=== PATIENT | male | born 1950 | race Caucasian/White ===

== ENCOUNTER → 2022-03-29 11:15 | Outpatient (BNVA) | payer MEDICARE, OTHER, SELFPAY | PROVIDERS: Visit Provider Family Medicine | DX: E11.9 Type 2 diabetes mellitus without complications (principal); G20 Parkinson's disease; I10 Essential (primary) hypertension; Z12.5 Encounter for screening for malignant neoplasm of prostate; Z76.89 Persons encountering health services in other specified circumstances | CPT/HCPCS: 80053; 80061; 83036; 84153; 85025 ==

== ENCOUNTER → 2022-09-28 11:00 | Outpatient (BNVA) | payer MEDICARE, OTHER, SELFPAY | PROVIDERS: PCP Family Medicine; Referring Provider Family Medicine; Visit Provider Specialist | DX: G20 Parkinson's disease (principal); R13.10 Dysphagia, unspecified | CPT/HCPCS: 99205 ==

== ENCOUNTER 2022-10-01 09:17 | Outpatient (RCR) | payer MEDICARE, OTHER, SELFPAY | END 2022-10-12 23:59 | disposition home or self-care (01) | LOC: SST 09:17 | PROVIDERS: PCP Family Medicine; Visit Provider Specialist | DX: R13.10 Dysphagia, unspecified (principal) | CPT/HCPCS: 92523; 92610 ==

== ENCOUNTER 2022-10-13 06:00 | Outpatient (RCR) | payer MEDICARE, OTHER, SELFPAY | END 2022-11-09 23:59 | disposition home or self-care (01) | LOC: SST 06:00 | PROVIDERS: PCP Family Medicine; Visit Provider Specialist | DX: R13.10 Dysphagia, unspecified (principal) | CPT/HCPCS: 92526 ==

== ENCOUNTER 2022-11-03 09:16 | Outpatient (CLI) | payer MEDICARE, OTHER, SELFPAY ==
--- NOTE | 2022-11-03 10:30 | FL_ITS ---
WS: [id number] The exam was performed in conjunction with the speech therapy service. Exam: FL barium swallow modifd [id number] Date/Time of Exam: 11/03/2022 10:15 AM Reason For Exam: G20 - Parkinson's disease Fluoroscopy time: 3min [id number] minutes # of spot films: 0 Swallowing function at the level of oropharynx was normal. The patient experienced penetration into t he laryngeal inlet and mild aspiration with ingestion of thin liquid barium solution. There was also a retention of the solid and pudding consistency barium foodstuffs in the vallecula. Ingestion of a b arium tablet demonstrated the retention of the tablet in the vallecula which eventually was cleared w ith the ingestion of thin liquid barium. FL/FL barium swallow modifd [id number] IMPRESSION: 1. Penetration and mild aspiration noted when the patient ingested thin liquid barium. 2. Significant retention of the solid and pudding consistency barium foodstuffs in the vallecula as well as the barium tablet. This cleared with additional in gestion of the thin liquid barium. A separate report of recommendations and findings will follow from the speech t herapy service.
== END 2022-11-03 09:17 | disposition home or self-care (01) ==
PROVIDERS: PCP Family Medicine; Visit Provider Specialist
DX: G20 Parkinson's disease (principal)
CPT/HCPCS: 74230; 92611

== ENCOUNTER 2022-11-10 06:00 | Outpatient (RCR) | payer MEDICARE, OTHER, SELFPAY | END 2022-12-10 23:59 | disposition home or self-care (01) | LOC: SST 06:00 | PROVIDERS: PCP Family Medicine; Visit Provider Specialist | DX: F80.89 Other developmental disorders of speech and language (principal) | CPT/HCPCS: 92526 ==

== ENCOUNTER → 2022-11-23 08:14 | Outpatient (BNVA) | payer MEDICARE, OTHER, SELFPAY | PROVIDERS: PCP Family Medicine; Visit Provider Family Medicine | DX: E11.9 Type 2 diabetes mellitus without complications (principal); I10 Essential (primary) hypertension; G20 Parkinson's disease; R61 Generalized hyperhidrosis | CPT/HCPCS: 80053; 80061; 83036; 84443; 85025 ==

== ENCOUNTER → 2023-01-31 10:45 | Outpatient (BNVA) | payer MEDICARE, OTHER, SELFPAY | PROVIDERS: PCP Family Medicine; Visit Provider Specialist | DX: G20 Parkinson's disease (principal); F06.70 Mild neurocognitive disorder due to known physiological condition without behavioral disturbance | CPT/HCPCS: 99214 ==

== ENCOUNTER → 2023-02-17 10:44 | Outpatient (BNVA) | payer MEDICARE, OTHER, SELFPAY | PROVIDERS: PCP Family Medicine; Visit Provider Family Medicine | DX: R61 Generalized hyperhidrosis (principal); E11.9 Type 2 diabetes mellitus without complications; I10 Essential (primary) hypertension; E03.9 Hypothyroidism, unspecified; G20 Parkinson's disease | CPT/HCPCS: 80053; 83036; 84443; 85025 ==

== ENCOUNTER → 2023-03-03 10:06 | Outpatient (BNVA) | payer MEDICARE, OTHER, SELFPAY | PROVIDERS: PCP Family Medicine; Referring Provider Family Medicine; Visit Provider Student in an Organized Health Care Education/Training Program | DX: M79.644 Pain in right finger(s) (principal); M65.311 Trigger thumb, right thumb | CPT/HCPCS: 73130; 99204 ==

== ENCOUNTER 2023-03-16 05:30 | Day surgery (SDC) | payer MEDICARE, OTHER, SELFPAY ==
[2023-03-14 08:34] VITALS: BMI 20.7
[2023-03-16] VITALS (7 sets, daily range): BP systolic 124–151; BP diastolic 63–89; PULSE 51–93; RESP 16–17; TEMP 36.1–36.6; O2SAT 95–98
[2023-03-16 06:12] LABS: Glucose Point of Care 148 mg/dL (70-110)
[2023-03-16] MEDS: acetaminophen 1,000 MG/100 ML PIGGYBACK 400 MG IV (06:13)
[2023-03-16] MEDS: sodium chloride 0.9% 1,000 ML 30 ML IV (06:14)
[2023-03-16] MEDS: ketorolac 30 mg/mL INJ IVP (06:16)
--- NOTE | 2023-03-16 06:56 | W.PM.OPSUD ---
Surgery/Procedure H&P Update DATE OF PROCEDURE: March 16, 2023 DATE H&P PERFORMED: 03/03/23 CHANGES TO PREVIOUS DOCUMENTATION: None. No change in patient's HPI from office visit on 03/03/2023. Understands risk benefits complication alternatives with surgery elects to proceed with right thumb trigger release. PREOP DIAGNOSIS: Right thumb trigger PRIMARY INDICATION FOR PROCEDURE: Right thumb trigger PLANNED PROCEDURE: Operation Date: 03/16/23 07:00 Proposed Procedures p right trigger thumb release/ [id number],M65.311(Right) - Russ Ibarra DO
[2023-03-16] MEDS: ceFAZolin 2,000 MG in sodium chloride 0.9% (plus) 50 ML 100 MG IV (07:02)
--- NOTE | 2023-03-16 07:43 | PM.OP2 ---
Brief Operative Note Date of procedure: 03/16/23 Pre-op diagnosis: Right thumb trigger Post-op diagnosis: same Procedure Done: Right thumb trigger release Surgeon: Russ Ibrara Estimated blood loss (mL): 1 Complications: None Post-op Plan: Patient taken to PACU in stable condition recovering well. Pain controlled. Will receive appropriate discharge instructions as well as pain medication postoperatively. Patient follow-up in the orthopedic office in 2 weeks. All questions answered. Condition: stable Disposition: same day Coding Level of Care Code Acute Code for Alhaji Rodríguez
--- NOTE | 2023-03-16 07:45 | PM.PACU ---
PACU note Narrative: Patient taken back in stable condition recovering well. Pain controlled. Dressing on in place and clean dry and intact. Fingertip warm well-perfused brisk capillary refill less than 2 seconds able to subtly wiggle finger sensation to the right thumb decreased secondary to local anesthesia. Exam: awake Disposition: discharged
--- NOTE | 2023-03-16 07:46 | PM.OP ---
Operative Report Date of procedure: March 16, 2023 Pre-op diagnosis: Preop Diagnosis Right thumb trigger Procedure: Post-op diagnosis: Right thumb trigger Procedure done: Right thumb trigger release Surgeon: Russ Ibarra DO Estimated blood loss: 1 mL Tourniquet time: 6 minutes Anesthesia: General IV fluids: See anesthesia record Complications: None Findings: See operative report narrative Condition: stable Disposition: same day Brief History: Patient presents to the outpatient setting with findings consistent with a right thumb trigger. Patient has been worked up in the outpatient setting and is failed conservative treatment approach.? Patient has a right thumb trigger that patient has tried treating conservatively with recurrence of triggering and pain.? We talked about treatment options and ultimately patient would like to proceed with a right thumb trigger release. At this point time I feel this is most appropriate as this is next best step in treatment option.? We talked about the risk benefits complications and alternatives with surgical nonsurgical treatment options.? Understanding risk of surgery patient agrees to proceed with a right thumb trigger release. All questions answered. Procedure: Patient was seen evaluated in the preoperative holding area.? Consent was reviewed and signed with patient.? Correct extremity was then marked.? Patient was then seen and evaluated by the anesthesia department once cleared for surgery patient was then taken back to the operative suite patient was placed in supine position and all bony prominences well-padded the patient was properly secured to the bed.? Armboard was applied to the right upper extremity and the right upper extremity was then placed with a nonsterile tourniquet to the right upper arm.? This point time the right upper extremity was then prepped and draped in standard orthopedic fashion.? A final timeout was performed.? Patient received appropriate preoperative antibiotics. Esmarch tourniquet was used exsanguinate the right upper extremity and tourniquet was insufflated to 250 mmHg.? I identified patient's MP flexion crease marked appropriate incision transversely across the flexion crease within Ramses's lines sharp scalpel incision was made only through skin.? Once this was done I switched to Littler dissection scissors this I then subsequently spread longitudinally in the planes of the digital nerves.? Once these were identified these were protected by my psychologist research assistant with Kasdan retractors.? Next I identified directly over the A1 massimo of the right thumb.? This was significantly thickened and identified to be the area of patient's thumb triggering.? I used sharp scalpel to incise the A1 massimo and then utilized my psychologist research assistant to retract the ability and under loupe magnification released the entirety of the A1 massimo both proximally and distally up to the oblique massimo.? This point time the tendon was then inspected and found to be healthy there was some inflammation around the tendon itself but no evidence of tearing and no need for any debridement.? The Ragnell was used to pull the tendon out of the incision and there was no mechanical triggering I then took the patient's thumb through range of motion no recurrent triggering was noted.? ?I then let the tourniquet down identified and maintained exact hemostasis with bipolar electrocautery irrigated the wound bed and then closed the incision with interrupted nylon suture. Incision sites were then dressed with Xeroform 4 x 4's Kerlix Emily wrap and an Luis Eduardo wrap.? Patient was then awakened from anesthesia and taken to PACU in stable condition. Disposition: Patient taken to PACU in stable condition recovering well.? Dressing on in place clean dry and intact.? Patient was receive appropriate discharge instruction as well as pain medication postoperatively.? Patient may be allowed weightbearing as tolerated to the right hand and encourage range of motion once dressing come down after 72 hours.? Patient to follow-up with me in the office in 2 weeks.? Patient understands and agrees with current plan.? All questions answered.
--- NOTE | 2023-03-16 09:14 | ANES.PREANE2 ---
Pre-Anesthetic Assessment Height/Weight: Height 1.75 m Weight 63.503 kg Temp Pulse Resp BP Pulse Ox O2 Del Method 98 F 51 L 17 128/66 98 Room Air 03/16/23 07:58 03/16/23 08:13 03/16/23 08:13 03/16/23 08:13 03/16/23 08:13 03/16/23 08:13 Preop Diagnosis: Right thumb trigger Operation Date: 03/16/23 07:00 Proposed Procedures p right trigger thumb release/ [id number],M65.311(Right) - Russ Wagoner, Familial anesthetic complications: none Was Beta Francis taken within 24 hours: N/A Was Clonidine taken within 24 hours: N/A Last intake: Intake Last Liquid Date 03/15/23 Last Liquid Time 19:00 Last Solid Date 03/15/23 Last Solid Time 19:00 Social No alcohol and No tobacco Exam alert, oriented x 3, clear to auscultation bilaterally and regular rate & rhythm Airway Submandibular: within normal limits Cervical ROM: within normal limits Mallampati: Class II Dentition: full Pulmonary Chronic Obstructive Pulmonary Disease CV/HEM Hypertension GI Gastroesophageal Reflux Disease Metabolic Diabetes Mellitus and Thyroid Disease Neuropsych Parkinson's Anesthetic Plan ASA status: 3 Anesthesia: MAC Medications/Allergies Home Medications Medication Instructions Recorded Confirmed Last Taken Type Saccharomyces boulardii 250 mg 250 mg PO DAILY 03/29/22 03/14/23 Unknown History capsule metformin 500 mg tablet 500 mg PO DAILY 03/29/22 03/16/23 03/16/23 History dapagliflozin 10 mg tablet 10 mg PO DAILY #90 tabs 05/27/22 03/16/23 03/15/23 Rx diabetic supplies, miscellan. #100 ea 09/11/22 03/03/23 Unknown Rx omeprazole 20 mg capsule,delayed 20 mg PO DAILY #90 caps 10/07/22 03/16/23 03/15/23 Rx release aspirin 81 mg tablet,delayed 81 mg PO DAILY 11/18/22 03/14/23 03/13/23 History release (Adult Aspirin Regimen) docusate sodium 100 mg capsule 100 mg PO DAILY 11/18/22 03/16/23 03/15/23 History (Colace) tiotropium bromide 18 mcg capsule 1 cap inhalation DAILY 11/18/22 03/14/23 Unknown History with inhalation device (Spiriva with HandiHaler) levothyroxine 25 mcg capsule 25 mcg PO DAILY #30 caps 11/30/22 03/16/23 03/16/23 Rx albuterol sulfate 90 mcg/actuation See Rx Instructions .Route 01/10/23 03/14/23 Unknown Rx aerosol inhaler .COMPLEX #60.3 grams lisinopril 20 mg tablet See Rx Instructions .Route 01/10/23 03/16/23 03/15/23 Rx .COMPLEX #90 tabs carbidopa 25 mg-levodopa 100 mg 1 tab PO BID #180 tabs 01/31/23 03/16/23 03/15/23 Rx tablet carbidopa ER 50 mg-levodopa 200 mg 2 tab PO BID 90 days #360 tabs 01/31/23 03/16/23 03/16/23 Rx tablet,extended release ropinirole 3 mg tablet 3 mg PO .2 tabs BID #360 tabs 01/31/23 03/16/23 03/15/23 Rx amlodipine 10 mg tablet See Rx Instructions .Route 03/10/23 03/16/23 03/15/23 Rx .COMPLEX #90 tabs diclofenac sodium 1 % topical gel See Rx Instructions .Route 03/10/23 03/14/23 Unknown Rx .COMPLEX #100 grams simvastatin 20 mg tablet See Rx Instructions .Route 03/10/23 03/16/23 03/15/23 Rx .COMPLEX #90 tabs hydrocodone 5 mg-acetaminophen 325 1 tab PO Q8H PRN pain postop 5 03/16/23 Unknown Rx mg tablet days #15 tabs ondansetron 4 mg disintegrating 4 mg PO DAILY 5 days #5 tabs 03/16/23 Unknown Rx tablet Allergies Allergy/AdvReac Type Severity Reaction Status Date / Time No Known Allergies Allergy Verified 03/16/23 07:47 PFSH Anesthesia Medical History Hypothyroid Social History Smoking and tobacco status: never smoked Alcohol intake: never Substance/Drug Use: never Data Anesthesia Cardiac Studies: No Data to Display
--- NOTE | 2023-03-16 16:35 | ANE.PACU2 ---
Inpatient post-anesthesia follow up: Airway intact: Yes Vital signs: Temperature 98 F Pulse Rate 51 Respiratory Rate 17 Blood Pressure 128/66 Pulse Oximetry 98 Oxygen Delivery Me thod Room Air Oxygen Flow Rate Fraction of Inspir ed Oxygen Hydration adequate: Yes Nausea and vomiting: No Pain level: 2 Mental status: Baseline
== END 2023-03-16 08:35 | disposition home or self-care (01) ==
PROVIDERS: PCP Family Medicine; Visit Provider Student in an Organized Health Care Education/Training Program
PROC: (CPT 26055; principal; 2023-03-16 07:00)
DX: M65.311 Trigger thumb, right thumb (principal); J44.9 Chronic obstructive pulmonary disease, unspecified; I10 Essential (primary) hypertension; K21.9 Gastro-esophageal reflux disease without esophagitis; E11.9 Type 2 diabetes mellitus without complications; E03.9 Hypothyroidism, unspecified; Z79.84 Long term (current) use of oral hypoglycemic drugs; Z79.82 Long term (current) use of aspirin; Z79.891 Long term (current) use of opiate analgesic
CPT/HCPCS: 26055; 36416; 82962; J0131; J0690; J1100; J1885; J2371; J2704; J2795; J3010; J7030

== ENCOUNTER → 2023-03-31 10:01 | Outpatient (BNVA) | payer MEDICARE, OTHER, SELFPAY | PROVIDERS: PCP Family Medicine; Visit Provider Student in an Organized Health Care Education/Training Program | DX: Z48.89 Encounter for other specified surgical aftercare (principal) | CPT/HCPCS: 99024 ==

== ENCOUNTER → 2023-05-24 10:24 | Outpatient (BNVA) | payer MEDICARE, OTHER, SELFPAY | PROVIDERS: PCP Family Medicine; Visit Provider Podiatrist Foot & Ankle Surgery | DX: G20 Parkinson's disease (principal); E11.9 Type 2 diabetes mellitus without complications; I73.9 Peripheral vascular disease, unspecified; L60.3 Nail dystrophy; Z79.84 Long term (current) use of oral hypoglycemic drugs | CPT/HCPCS: 11721; 99203 ==

== ENCOUNTER → 2023-07-25 12:00 | Outpatient (BNVA) | payer MEDICARE, OTHER, SELFPAY | PROVIDERS: PCP Family Medicine; Visit Provider Specialist | DX: G20.A1 Parkinson's disease without dyskinesia, without mention of fluctuations (principal); G31.84 Mild cognitive impairment of uncertain or unknown etiology | CPT/HCPCS: 99214 ==

== ENCOUNTER → 2023-08-17 09:57 | Outpatient (BNVA) | payer MEDICARE, OTHER, SELFPAY | PROVIDERS: PCP Family Medicine; Visit Provider Podiatrist Foot & Ankle Surgery | DX: E11.8 Type 2 diabetes mellitus with unspecified complications (principal); L60.3 Nail dystrophy; Z79.84 Long term (current) use of oral hypoglycemic drugs | CPT/HCPCS: 11721 ==

== ENCOUNTER → 2023-09-22 10:16 | Outpatient (BNVA) | payer MEDICARE, OTHER, SELFPAY | PROVIDERS: PCP Family Medicine; Referring Provider Family Medicine; Visit Provider Dermatology | DX: L21.8 Other seborrheic dermatitis (principal); L57.0 Actinic keratosis; L23.9 Allergic contact dermatitis, unspecified cause; D48.5 Neoplasm of uncertain behavior of skin; Z85.828 Personal history of other malignant neoplasm of skin; L57.8 Other skin changes due to chronic exposure to nonionizing radiation; L82.1 Other seborrheic keratosis | CPT/HCPCS: 11102; 17000; 69100; 99204 ==

== ENCOUNTER → 2023-10-18 09:19 | Outpatient (BNVA) | payer MEDICARE, OTHER, SELFPAY | PROVIDERS: PCP Family Medicine; Visit Provider Dermatology | DX: C44.212 Basal cell carcinoma of skin of right ear and external auricular canal (principal); C44.319 Basal cell carcinoma of skin of other parts of face | CPT/HCPCS: 12052; 17311 ==

== ENCOUNTER → 2023-10-20 08:37 | Outpatient (BNVA) | payer MEDICARE, OTHER, SELFPAY | PROVIDERS: PCP Family Medicine; Visit Provider Dermatology | DX: C44.311 Basal cell carcinoma of skin of nose (principal); Z48.1 Encounter for planned postprocedural wound closure | CPT/HCPCS: 15260 ==

== ENCOUNTER → 2023-10-27 08:23 | Outpatient (BNVA) | payer MEDICARE, OTHER, SELFPAY | PROVIDERS: PCP Family Medicine; Visit Provider Dermatology | DX: Z48.02 Encounter for removal of sutures (principal) | CPT/HCPCS: 99212 ==

== ENCOUNTER 2023-11-10 09:26 | Outpatient (CLI) | payer MEDICARE, OTHER, SELFPAY ==
[2023-11-10 09:49] LABS: Basophils % 0.5 %; Eosinophils # 0.1 10^3/uL (0.0-0.8); Eosinophils % 1.1 %; Hematocrit 47.3 % (37-53); Lymphocytes % 30.3 %; Mean Corpuscular HGB Conc 32.1 g/dL (30-55); Mean Corpuscular Hemoglobin 31.3 pg (27-33); Mean Corpuscular Volume 97.3 fl (82-101); Mean Platelet Volume 9.1 fL (7.4-10.4); Monocytes # 0.3 10^3/uL (0.2-0.9); Monocytes % 4.4 %; Neutrophils # 4.14 10^3/uL (1.8-7.7); Neutrophils % 63.4 %; Nucleated Red Blood Cells % 0 %; Platelet Count 187 10^3/cmm (157-399); Red Blood Count 4.86 10^6/uL (3.85-5.65); White Blood Count 6.53 10^3/uL (3.29-11.43)
[2023-11-10 10:25] LABS: Estmated Average Glucose 192; Hemoglobin A1C 8.3 % (4.0-6.0)
[2023-11-10 10:42] LABS: Alanine Aminotransferase < 5 U/L (0-41); Albumin Level 4.4 g/dL (3.5-5.2); Alkaline Phosphatase 118 U/L (40-130); Anion Gap 13.9 (5-19); Aspartate Amino Transferase 9 U/L (0-40); Blood Urea Nitrogen 16 mg/dL (8-23); Calcium 9.6 mg/dL (8.5-10.5); Carbon Dioxide 28 mmol/L (22-29); Chloride 103 mmol/L (98-107); Cholesterol 120 mg/dL (0-200); Glucose 235 mg/dL (65-115); HDL Cholesterol 40 mg/dL (60-100); LDL Cholesterol Calculated 62 mg/dL (50-129); LDL HDL Ratio 1.55 RATIO (0.00-3.22); Magnesium 1.8 mg/dL (1.7-2.3); Osmolality Calculated 301 mOsm/kg (285-295); Potassium 3.9 mmol/L (3.5-5.1); Sodium 141 mmol/L (136-145); Thyroid Stimulating Hormone 1.96 uIU/mL (0.27-4.20); Total Protein 7.4 g/dL (6.6-8.7); Triglycerides 90 mg/dL (0-150); Vitamin B12 299 pg/mL (232-1245)
== END 2023-11-10 09:27 | disposition home or self-care (01) ==
PROVIDERS: PCP Family Medicine; Visit Provider Family Medicine
DX: G20.C Parkinsonism, unspecified (principal); E03.9 Hypothyroidism, unspecified; E08.9 Diabetes mellitus due to underlying condition without complications; J44.9 Chronic obstructive pulmonary disease, unspecified
CPT/HCPCS: 80053; 80061; 82607; 83036; 83735; 84443; 85025

== ENCOUNTER → 2023-11-15 11:29 | Outpatient (BNVA) | payer MEDICARE, OTHER, SELFPAY | PROVIDERS: PCP Family Medicine; Visit Provider Dermatology | DX: Z48.817 Encounter for surgical aftercare following surgery on the skin and subcutaneous tissue (principal); C44.212 Basal cell carcinoma of skin of right ear and external auricular canal | CPT/HCPCS: 97597; 99213 ==

== ENCOUNTER 2023-12-03 18:37 | Emergency (ER) | payer MEDICARE, OTHER, SELFPAY ==
[2023-12-03 18:43] VITALS: BP 168/60; PULSE 65; RESP 18; TEMP 36.4; O2SAT 95; BMI 23.6
--- NOTE | 2023-12-03 18:50 | CTR_ITS ---
PROCEDURE INFORMATION: Exam: CT Head Without Contrast Exam date and time: 12/03/2023 7:05 PM Age: 73 years old Clinical indication: Injury or trauma; Blunt trauma (contusions or hematomas); Patient HX: Patient sustained fall at home. Tripping and hitting left temporal against a hand rail. Hematoma to left temporal. Anticoagulated. ; Additional info: Fall head inj TECHNIQUE: Imaging protocol: Computed tomography of the head without contrast. Radiation optimization: All CT scans at this facility use at least one of these dose optimization techniques: automated exposure control; mA and/or kV adjustment per patient size (includes targeted exams where dose is matched to clinical indication); or iterative reconstruction. COMPARISON: RF FL barium swallow modifd [id number] 11/03/2022 10:22 AM RADIATION DOSE METRICS: Total DLP (mGy-cm): 1030.58 FINDINGS: Brain: There are inferior bifrontal subarachnoid hemorrhages present. No mass effect or midline shift. Mild involutional changes of the brain. Cerebral ventricles: No ventriculomegaly. Paranasal sinuses: Scattered paranasal sinus mucosal thickening, without air-fluid level present. Mastoid air cells: No significant inflammation. Bones/joints: No acute fracture. Soft tissues: There is a left-sided periorbital soft tissue hematoma present. No acute ischemic infarct. CT/CT head wo con* [id number] IMPRESSION: 1. Bifrontal subarachnoid hemorrhages. No mass effect or midline shift. 2. Left periorbital soft tissue hematoma.
--- NOTE | 2023-12-03 19:02 | ED_ITS ---
HPI - Wound/Laceration General: Chief Complaint: Wound/Laceration Stated Complaint: LEFT EYEBROW LACERATION S/P FALL Time Seen by Provider: 12/03/23 18:40 History of Present Illness: 73-year-old male arrives by ambulance af ter a ground-level fall striking the left side of his head, and eyebrow area at assisted living facility near the cafeteria. He does not believe he was knocked unconscious. He felt well prior to the fall. There were no symptoms prior to the fall. He states that he tripped on a rug. He complains of a headache, and eyebrow pain. He arrives with Steri-Strips in place over laceration in the left supraorbital area. Associated symptoms: Denies fever(s) or vomiting Review of Systems Const: Denies: fever(s) Card: Denies: chest pain Resp: Denies: dyspnea GI: Denies: abdominal pain or vomiting Neuro: Reports: headache(s); Denies: numbness in extremities, weakness in extremities, dizziness or Slurred speech present [facility] ED PFSH: Medical History Hypothyroid Type 2 diabetes mellitus without complications Essential hypertension Parkinsons disease Social History Smoking and tobacco/nicotine status: never used tobacco/nicotine Alcohol intake: never Substance/Drug Use: never Physical Exam Const: GENERAL APPEARANCE: cooperative and frail appearing HENMT: COMMON NORMALS: normocephalic, atraumatic and Normal external nose present HEAD & SCALP: normocephalic and atraumatic NOSE: Normal external nose present and Normal nares present Eye: COMMON NORMALS: Equal, round and reactive pupils present and EOMs intact bilaterally PUPIL: Yes Equal, round and reactive pupils present Neck/C-Spine: GENERAL: Yes trachea midline Chest: CHEST: Yes Symmetrical chest wall rise Resp: COMMON NORMALS: normal respiratory effort and No use of accessory muscles Cardio: COMMON NORMALS: regular rate and regular rhythm RATE: regular rate RHYTHM: regular rhythm GI: COMMON NORMALS: Normal to inspection, nondistended, normoactive bowel sounds present Neuro: PAULA COMA SCALE: document GCS findings [place] coma scale eye opening: Spontaneous [place] coma scale verbal response: Confused (slightly) Paula coma scale motor response: Obey commands Paula coma scale total score: 14 MOTOR EXAM: Tremors during motor activity present Skin: NARRATIVE SKIN EXAM: small abrasion/laceration to left lateral supraorbital area. Course Vital Signs: Vital signs: Vital Signs Temperature 97.5 F L 12/03/23 20:36 Pulse Rate 80 12/03/23 20:36 Respiratory Rate 16 12/03/23 20:36 Blood Pressure 162/88 12/03/23 20:36 Pulse Oximetry 94 12/03/23 20:36 Oxygen Delivery Me thod Room Air 12/03/23 20:21 MDM - Wound/Laceration Medical Decision Making Bleeding is controlled with Steri-Strips. Head CT ordered. CT scan of the head shows bilateral subarachnoid frontal hemorrhage. CT of cervical spine ordered. Patient remains awake and alert, maintaining his own airway. Vitals are stable. Blood pressure 162/80. Spoke with neurosurgery at [facility]. Because the patient is on aspirin, they suggest observatory care under neurosurgery service. Spoke with Dr. Reardon at [facility]. Patient will go ER to ER. This is a small intracranial hemorrhage, ground transport is not available. Patient will go by air due to ground transport and availability in light of head injury. He is given TXA here. CT cervical spine clear. Lab Data Radiology Impressions Head CT 12/03/23 18:50 IMPRESSION: 1. Bifrontal subarachnoid hemorrhages. No mass effect or midline shift. 2. Left periorbital soft tissue hematoma. ADDENDUM: 12/03/231937 THIS REPORT CONTAINS FINDINGS THAT MAY BE CRITICAL TO PATIENT CARE. The findings were verbally communicated via telephone conference with DARIO Canales at 7:37 PM CDT on 12/03/2023. The findings were acknowledged and understood. Cervical Spine CT 12/03/23 19:28 IMPRESSION: No acute osseous injury. All radiology interpretation(s) finalized by discharge Discharge Plan Discharge Patient Disposition: Transfer to ED Clinical Impression: Subarachnoid hemorrhage Condition: Serious Prescriptions: No Action docusate sodium [Colace] 100 mg capsule 100 mg PO DAILY aspirin [Adult Aspirin Regimen] 81 mg tablet,delayed release (DR/EC) 81 mg PO DAILY Spiriva with HandiHaler 18 mcg capsule, w/inhalation device 1 cap inhalation DAILY carbidopa-levodopa 25-100 mg tablet 1 tab PO BID Qty: 180 3RF Rx Instructions: 1 tab at 10 AM and 1 tab at 2 PM carbidopa-levodopa 50-200 mg tablet extended release 2 tab PO BID 90 Days Qty: 360 3RF Rx Instructions: 2 tabs at 8 am and 2 tabs at noon ropinirole 3 mg tablet 6 mg PO BID Qty: 360 3RF Rx Instructions: 2 twice a day, morning and evening Saccharomyces boulardii 250 mg capsule 250 mg PO DAILY (DME) diabetic supplies, miscellan. Misc See Rx Instructions .ROUTE .MEDSUPPLY Qty: 100 12RF Rx Instructions: Please issue diabetic testing supplies:test strips lancets, etc. lisinopril 20 mg tablet See Rx Instructions .ROUTE .COMPLEX Qty: 90 3RF Dose Instruction: TAKE 1 TABLET BY MOUTH EVERY DAY Rx Instructions: TAKE 1 TABLET BY MOUTH EVERY DAY omeprazole 20 mg capsule,delayed release(DR/EC) 20 mg PO DAILY Qty: 90 3RF metformin 500 mg tablet 500 mg PO DAILY Qty: 30 11RF Farxiga 10 mg tablet See Rx Instructions .ROUTE .COMPLEX Qty: 90 3RF Dose Instruction: TAKE 1 TABLET BY MOUTH EVERY DAY Rx Instructions: TAKE 1 TABLET BY MOUTH EVERY DAY albuterol sulfate 90 mcg/actuation HFA aerosol inhaler See Rx Instructions .ROUTE .COMPLEX Qty: 60.3 0RF Dose Instruction: INHALE TWO PUFFS BY MOUTH EVERY 4 HOURS NEEDED Rx Instructions: INHALE TWO PUFFS BY MOUTH EVERY 4 HOURS NEEDED diclofenac sodium 1 % gel See Rx Instructions .ROUTE .COMPLEX Qty: 100 1RF Dose Instruction: USE TWO grams topically FOUR TIMES DAILY Rx Instructions: USE TWO grams topically FOUR TIMES DAILY cephalexin 500 mg capsule 500 mg PO BID Qty: 14 0RF ciprofloxacin HCl 500 mg tablet 500 mg PO Q12H Qty: 14 0RF simvastatin 20 mg tablet See Rx Instructions .ROUTE .COMPLEX Qty: 90 0RF Dose Instruction: Take 1 tablet by mouth at bedtime. Rx Instructions: Take 1 tablet by mouth at bedtime. amlodipine 10 mg tablet See Rx Instructions .ROUTE .COMPLEX Qty: 90 0RF Dose Instruction: Take 1 tablet by mouth daily. Rx Instructions: Take 1 tablet by mouth daily. azithromycin [Zithromax Z-Jacob] 250 mg tablet See Rx Instructions PO .COMPLEX Qty: 6 0RF Rx Instructions: For 250 mg dose pack: take 500 mg today (day 1), then 250 mg for 4 days (days 2-5) PO levothyroxine 25 mcg tablet 25 mcg PO DAILY Qty: 90 3RF Referrals: Diego Lam DO [Primary Care Provider] - Coding Level of Care Code ED Bonding Equipment Operator for Chg Anne
--- NOTE | 2023-12-03 19:28 | CTR_ITS ---
PROCEDURE INFORMATION: Exam: CT Cervical Spine Without Contrast Exam date and time: 12/03/2023 7:40 PM Age: 73 years old Clinical indication: Injury or trauma; Blunt trauma; Patient HX: Patient sustained fall at home striking head against a hand rail. Positive for bifrontal subarachnoid hemorrhage. ; Additional info: C spine clearance. Subarachnoid hemorrhage TECHNIQUE: Imaging protocol: Computed tomography of the cervical spine without contrast. Radiation optimization: All CT scans at this facility use at least one of these dose optimization techniques: automated exposure control; mA and/or kV adjustment per patient size (includes targeted exams where dose is matched to clinical indication); or iterative reconstruction. COMPARISON: CT head wo con* [id number] 12/03/2023 7:05 PM RADIATION DOSE METRICS: Total DLP (mGy-cm): 351.47 FINDINGS: Bones/joints: Near anatomic alignment. No acute fracture. Multilevel degenerative changes are present. Lungs: Lung apices are normal. Soft tissues: Unremarkable. CT/CT cervical spin wo con* [id number] IMPRESSION: No acute osseous injury.
[2023-12-03 19:46] VITALS: BP 168/80; PULSE 67; RESP 18; O2SAT 96
[2023-12-03] MEDS: tranexamic acid 1,000 MG/100 ML PREMIX 600 MG IV (20:02)
[2023-12-03 20:21] VITALS: BP 162/88; PULSE 80; RESP 16; O2SAT 94
[2023-12-03 20:36] VITALS: BP 162/88; PULSE 80; RESP 16; TEMP 36.4; O2SAT 94
== END 2023-12-03 20:38 ==
PROVIDERS: Emergency Provider Emergency Medicine; PCP Family Medicine
DX: S06.6XAA Traumatic subarachnoid hemorrhage with loss of consciousness status unknown, initial encounter (principal); S00.212A Abrasion of left eyelid and periocular area, initial encounter; Z79.82 Long term (current) use of aspirin; E11.9 Type 2 diabetes mellitus without complications; I10 Essential (primary) hypertension; G20.A1 Parkinson's disease without dyskinesia, without mention of fluctuations; Z79.84 Long term (current) use of oral hypoglycemic drugs; W18.39XA Other fall on same level, initial encounter; Y92.098 Other place in other non-institutional residence as the place of occurrence of the external cause
CPT/HCPCS: 70450; 72125; 96374; 99284

== ENCOUNTER → 2023-12-07 11:11 | Outpatient (BNVA) | payer MEDICARE, OTHER, SELFPAY | PROVIDERS: PCP Family Medicine; Visit Provider Dermatology | DX: Z48.817 Encounter for surgical aftercare following surgery on the skin and subcutaneous tissue (principal); S00.80XA Unspecified superficial injury of other part of head, initial encounter; X58.XXXA Exposure to other specified factors, initial encounter; L21.8 Other seborrheic dermatitis | CPT/HCPCS: 99213 ==

== ENCOUNTER → 2023-12-09 11:12 | Outpatient (BNVA) | payer MEDICARE, OTHER, SELFPAY | PROVIDERS: PCP Family Medicine; Visit Provider Specialist | DX: S06.2X9A Diffuse traumatic brain injury with loss of consciousness of unspecified duration, initial encounter (principal); R29.90 Unspecified symptoms and signs involving the nervous system; G20.B1 Parkinson's disease with dyskinesia, without mention of fluctuations; X58.XXXA Exposure to other specified factors, initial encounter | CPT/HCPCS: 99215 ==

== ENCOUNTER 2024-01-04 08:50 | Outpatient (CLI) | payer MEDICARE, OTHER, SELFPAY ==
--- NOTE | 2024-01-04 09:00 | CT_ITS ---
WS: [id number] CT HEAD NONCONTRAST HISTORY: S06.2X9A - Diffuse traumatic brain injury with loss of co... TECHNIQUE: Contiguous axial imaging performed through the brain in 2.5 mm imaging. Bone and soft tiss ue windows. Sagittal and coronal reformats reviewed. All CT scans at [facility] use at least one of these dose optimization techniques: automated exposure control; mA and/or kV adjustment per pa tient size (includes targeted exams where dose is matched to clinical indication); or iterative recon struction. DLP: 1163.17 mGy.cm COMPARISON: 12/03/2023 Previously described bifrontal lobe subarachnoid hemorrhages have completely resolved since 12/03/2023 . No new acute blood products. Mild atrophy and volume loss within the brain. Mild small vessel ischemic disease. Posterior fossa is negative. Ventricles: Normal size with no hydrocephalus. No inferior displacement of the soft tissues. Paranasal sinuses: As visualized are clear. Mastoid air cells: Well pneumatized. Calvarium and scalp: No residual soft tissue hematoma or contusion over the LEFT periorbital soft tis sues. IMPRESSION: 1. Complete resolution of the recently described bifrontal lobe subarachnoid hemorrhages. 2. Mild cerebral volume loss. No infarct. 3. Resolved LEFT periorbital hematoma.
== END 2024-01-04 08:51 | disposition home or self-care (01) ==
LOC: RAD 08:51
PROVIDERS: PCP Family Medicine; Visit Provider Specialist
DX: S06.2X9A Diffuse traumatic brain injury with loss of consciousness of unspecified duration, initial encounter (principal); G31.89 Other specified degenerative diseases of nervous system; X58.XXXA Exposure to other specified factors, initial encounter
CPT/HCPCS: 70450

== ENCOUNTER → 2024-01-11 13:36 | Outpatient (BNVA) | payer MEDICARE, OTHER, SELFPAY | PROVIDERS: PCP Family Medicine; Visit Provider Specialist | DX: Z09 Encounter for follow-up examination after completed treatment for conditions other than malignant neoplasm (principal); S06.2X9A Diffuse traumatic brain injury with loss of consciousness of unspecified duration, initial encounter; G20.B1 Parkinson's disease with dyskinesia, without mention of fluctuations; X58.XXXA Exposure to other specified factors, initial encounter | CPT/HCPCS: 99214; 99215 ==

== ENCOUNTER → 2024-03-06 15:15 | Outpatient (BNVA) | payer MEDICARE, OTHER, SELFPAY | PROVIDERS: PCP Family Medicine; Visit Provider Specialist | DX: Z09 Encounter for follow-up examination after completed treatment for conditions other than malignant neoplasm; I60.9 Nontraumatic subarachnoid hemorrhage, unspecified; R29.90 Unspecified symptoms and signs involving the nervous system; G20.B1 Parkinson's disease with dyskinesia, without mention of fluctuations | CPT/HCPCS: 99213 ==

== ENCOUNTER → 2024-04-04 09:41 | Outpatient (BNVA) | payer MEDICARE, OTHER, SELFPAY | PROVIDERS: PCP Family Medicine; Visit Provider Nurse Practitioner Family | DX: L21.8 Other seborrheic dermatitis (principal); L57.0 Actinic keratosis; Z85.828 Personal history of other malignant neoplasm of skin; L57.8 Other skin changes due to chronic exposure to nonionizing radiation; L82.1 Other seborrheic keratosis | CPT/HCPCS: 17000; 99214 ==

== ENCOUNTER 2024-04-07 10:56 | Outpatient (CLI) | payer MEDICARE, OTHER, SELFPAY ==
[2024-04-07 11:28] LABS: Basophils % 0.7 %; Eosinophils # 0.1 10^3/uL (0.0-0.8); Eosinophils % 1.5 %; Lymphocytes # 1.7 10^3/uL (0.8-4.8); Lymphocytes % 40.5 %; Mean Corpuscular HGB Conc 33.1 g/dL (30-55); Mean Corpuscular Hemoglobin 31.9 pg (27-33); Mean Corpuscular Volume 96.3 fl (82-101); Mean Platelet Volume 9.9 fL (7.4-10.4); Monocytes # 0.3 10^3/uL (0.2-0.9); Monocytes % 8.1 %; Neutrophils # 1.99 10^3/uL (1.8-7.7); Nucleated Red Blood Cells % 0 %; Platelet Count 161 10^3/cmm (157-399); Red Blood Count 4.36 10^6/uL (3.85-5.65); Red Cell Distribution Width 12.7 % (12.1-15.1); White Blood Count 4.07 10^3/uL (3.29-11.43)
[2024-04-07 11:51] LABS: Estmated Average Glucose 186; Hemoglobin A1C 8.1 % (4.0-6.0)
[2024-04-07 12:08] LABS: 25 Hydroxy Vitamin D 12 ng/mL (30-100); Alanine Aminotransferase 8 U/L (0-41); Albumin Level 4.3 g/dL (3.5-5.2); Alkaline Phosphatase 79 U/L (40-130); Anion Gap 14.8 (5-19); Aspartate Amino Transferase 8 U/L (0-40); Blood Urea Nitrogen 18 mg/dL (8-23); Calcium 9.6 mg/dL (8.5-10.5); Carbon Dioxide 26 mmol/L (22-29); Chloride 99 mmol/L (98-107); Chol HDL Ratio 2.68 mg/dL (1.0-5.00); Cholesterol 102 mg/dL (0-200); Globulin 3.1 g/dL (1.3-4.6); Glucose 192 mg/dL (65-115); HDL Cholesterol 38 mg/dL (60-100); LDL Cholesterol Calculated 44 mg/dL (50-129); LDL HDL Ratio 1.16 RATIO (0.00-3.22); Magnesium 1.9 mg/dL (1.7-2.3); Osmolality Calculated 289 mOsm/kg (285-295); Potassium 3.8 mmol/L (3.5-5.1); Sodium 136 mmol/L (136-145); Thyroid Stimulating Hormone 2.57 uIU/mL (0.27-4.20); Total Bilirubin 1.3 mg/dL (0.15-1.2); Total Protein 7.4 g/dL (6.6-8.7); Triglycerides 101 mg/dL (0-150); Vitamin B12 202 pg/mL (232-1245)
[2024-04-07 12:18] LABS: Folate Level 11.1 ng/mL (4.5-32.2)
== END 2024-04-07 10:57 | disposition home or self-care (01) ==
LOC: LAB 10:58
PROVIDERS: PCP Family Medicine; Visit Provider Family Medicine
DX: G20.A1 Parkinson's disease without dyskinesia, without mention of fluctuations (principal); E55.9 Vitamin D deficiency, unspecified; D64.9 Anemia, unspecified; I10 Essential (primary) hypertension; E08.9 Diabetes mellitus due to underlying condition without complications; E78.5 Hyperlipidemia, unspecified
CPT/HCPCS: 80053; 80061; 82306; 82607; 82746; 83036; 83735; 84100; 84443; 85025

== ENCOUNTER → 2024-06-20 10:28 | Outpatient (BNVA) | payer MEDICARE, OTHER, SELFPAY | PROVIDERS: PCP Family Medicine; Visit Provider Nurse Practitioner Family | DX: L57.0 Actinic keratosis (principal); D69.2 Other nonthrombocytopenic purpura; L57.8 Other skin changes due to chronic exposure to nonionizing radiation; L82.1 Other seborrheic keratosis; Z85.828 Personal history of other malignant neoplasm of skin | CPT/HCPCS: 17000; 99213 ==

== ENCOUNTER → 2024-09-25 14:06 | Outpatient (BNVA) | payer MEDICARE, OTHER, SELFPAY | PROVIDERS: PCP Family Medicine; Visit Provider Specialist | DX: R29.90 Unspecified symptoms and signs involving the nervous system (principal); Z09 Encounter for follow-up examination after completed treatment for conditions other than malignant neoplasm; G20.B1 Parkinson's disease with dyskinesia, without mention of fluctuations | CPT/HCPCS: 99214 ==

== ENCOUNTER → 2024-10-03 12:59 | Outpatient (BNVA) | payer MEDICARE, OTHER, SELFPAY | PROVIDERS: PCP Family Medicine; Visit Provider Podiatrist Foot & Ankle Surgery | DX: L60.3 Nail dystrophy (principal); G62.9 Polyneuropathy, unspecified; B35.3 Tinea pedis; E11.42 Type 2 diabetes mellitus with diabetic polyneuropathy; Z79.84 Long term (current) use of oral hypoglycemic drugs | CPT/HCPCS: 11721; 99203 ==

== ENCOUNTER → 2024-10-11 10:43 | Outpatient (BNVA) | payer MEDICARE, OTHER, SELFPAY | PROVIDERS: PCP Family Medicine; Visit Provider Nurse Practitioner Family | DX: D69.2 Other nonthrombocytopenic purpura (principal); L57.8 Other skin changes due to chronic exposure to nonionizing radiation; L82.1 Other seborrheic keratosis; L72.0 Epidermal cyst; Z08 Encounter for follow-up examination after completed treatment for malignant neoplasm; Z85.828 Personal history of other malignant neoplasm of skin; L57.0 Actinic keratosis | CPT/HCPCS: 17000; 99213 ==

== ENCOUNTER 2024-10-20 11:01 | Emergency (ER) | payer MEDICARE, OTHER, SELFPAY ==
[2024-10-20 11:02] VITALS: BP 152/89; PULSE 77; RESP 15; TEMP 36.5; O2SAT 90; BMI 23.2
--- NOTE | 2024-10-20 11:17 | CTR_ITS ---
PROCEDURE INFORMATION: Exam: CT Head Without Contrast Exam date and time: 10/20/2024 11:33 AM Age: 74 years old Clinical indication: Injury or trauma; Fall; Blunt trauma (contusions or hematomas); Additional info: Fall, head injury TECHNIQUE: Imaging protocol: Computed tomography of the head without contrast. Radiation optimization: All CT scans at this facility use at least one of these dose optimization techniques: automated exposure control; mA and/or kV adjustment per patient size (includes targeted exams where dose is matched to clinical indication); or iterative reconstruction. COMPARISON: CT head wo con* [id number] 01/04/2024 9:04 AM RADIATION DOSE METRICS: Total DLP (mGy-cm): 1084.98 FINDINGS: Brain: There are bilateral periventricular white matter and centrum semiovale hypodensities, consistent with chronic ischemic small vessel disease. No recent infarct, intracranial bleed or mass effect. Age related diffuse parenchymal volume loss. Cerebral ventricles: Ex vacuo dilatation of the ventricles. Paranasal sinuses: Mucous retention cysts in bilateral maxillary sinuses. Mild mucosal disease of bilateral ethmoid air cells. Mastoid air cells: Visualized mastoid air cells are well aerated. Bones: Unremarkable. No acute fracture. Soft tissues: Unremarkable. CT/CT head wo con* [id number] IMPRESSION: No large territorial infarct or intracranial bleed.
--- NOTE | 2024-10-20 11:23 | W.ED.FALL ---
HPI - Fall General: Chief Complaint: Fall Stated Complaint: fall hit head Time Seen by Provider: 10/20/24 11:07 History of Present Illness: 74-year-old male presents following a fall. Patient reports that he has been having a lot of issues when he starts to urinate and he reports he is unable to control it. And he tried to get to the bathroom and urinated on the floor and slipped and fell. He did strike his head on the floor. He did not lose consciousness. He denies any shoulder or hip or other pain or injury. Associated symptoms-after fall: Denies chest pain Related Data Home Medications ?Medication ?Instructions ?Recorded ?Confirmed aspirin 81 mg tablet,delayed 81 mg PO DAILY 11/18/22 10/20/24 release (Adult Aspirin Regimen) amlodipine 10 mg tablet 10 mg PO DAILY 10/20/24 10/20/24 carbidopa ER 50 mg-levodopa 200 mg 2 tab PO BID 10/20/24 10/20/24 tablet,extended release dapagliflozin propanediol 10 mg 10 mg PO DAILY 10/20/24 10/20/24 tablet (Farxiga) lisinopril 20 mg tablet 20 mg PO DAILY 10/20/24 10/20/24 simvastatin 20 mg tablet 20 mg PO QPM 10/20/24 10/20/24 Previous Rx's ?Medication ?Instructions ?Recorded diabetic supplies, [employer]. #100 ea 09/11/22 levothyroxine 25 mcg tablet 25 mcg PO DAILY #90 tabs 11/14/23 omeprazole 20 mg capsule,delayed 20 mg PO DAILY #90 caps 02/02/24 release ropinirole 3 mg tablet 3 mg PO BID #180 tabs 03/06/24 metformin 500 mg tablet 500 mg PO DAILY #30 tabs 04/03/24 carbidopa 25 mg-levodopa 100 mg 1 tab PO BID #180 tabs 10/04/24 tablet Allergies Allergy/AdvReac Type Severity Reaction Status Date / Time chocolate Allergy Unknown Verified 10/20/24 11:15 Review of Systems Const: Denies: fever(s) or chills ENMT: Reports: other (Mild tenderness left sided head) Card: Denies: chest pain or palpitations Resp: Denies: dyspnea or productive cough : Reports: urinary urgency Neuro: Denies: numbness in extremities, weakness in extremities, sensory changes or Slurred speech present [facility] ED PFSH: Medical History Cellulitis of lower extremity Hypothyroid Type 2 diabetes mellitus without complications Essential hypertension Parkinsons disease Social History Smoking and tobacco/nicotine status: former use of tobacco/nicotine Alcohol intake: never Substance/Drug Use: never Physical Exam Const: COMMON NORMALS: no acute distress and patient oriented x3 GENERAL APPEARANCE: frail appearing NUTRITIONAL APPEARANCE: thin Resp: COMMON NORMALS: normal respiratory effort and No retractions Cardio: COMMON NORMALS: regular rate and regular rhythm RATE: regular rate RHYTHM: regular rhythm Extremity: COMMON NORMALS: normal to inspection NARRATIVE EXTREMITY EXAM: No tenderness noted on exam Neuro: COMMON NORMALS: patient oriented x3, moves all extremities and no focal motor deficits Psych: COMMON NORMALS: mental status grossly normal, cooperative and speech normal SPEECH: Yes normal speech Skin: COMMON NORMALS: no rashes or lesions noted and no wounds GENERAL SKIN EXAM: no rashes or lesions noted Course Vital Signs: Vital signs: Vital Signs Temperature 97.7 F 10/20/24 11:02 Pulse Rate 77 10/20/24 11:02 Respiratory Rate 15 10/20/24 11:02 Blood Pressure 152/89 10/20/24 11:02 Pulse Oximetry 90 10/20/24 11:02 Oxygen Delivery Me thod Room Air 10/20/24 11:02 MDM - Fall Medical Decision Making Patient's urinalysis ordered reviewed and shows some hematuria but no signs of an infection. Patient CT was ordered and reviewed and shows no acute intercranial findings. Patient with a mechanical fall from slipping. Discussed findings with patient. He should follow-up with his primary care provider for further evaluation of his hematuria. Patient stable and discharged home Lab Data Radiology Impressions Head CT 10/20/24 11:17 IMPRESSION: No large territorial infarct or intracranial bleed. Laboratory Results Urine Color Yellow (Yellow) 10/20/24 11:58 Urine Appearance Clear (CLEAR) 10/20/24 11:58 Urine pH 5.0 (5-7) 10/20/24 11:58 Ur Specific [place] 1.042 (1.005-1.030) H 10/20/24 11:58 Urine Protein 1+ (Negative) A 10/20/24 11:58 Urine Glucose (UA) 3+ (Normal) H 10/20/24 11:58 Urine Ketones 1+ (Negative) H 10/20/24 11:58 Urine Blood 2+ (Negative) A 10/20/24 11:58 Urine Nitrate Negative (Negative) 10/20/24 11:58 Urine Bilirubin Negative (Negative) 10/20/24 11:58 Urine Urobilinogen 1.0 mg/dL (Negative) 10/20/24 11:58 Ur Leukocyte Esterase Negative (Negative) 10/20/24 11:58 Urine RBC 11-20 /hpf (0-2) H 10/20/24 11:58 Urine WBC 0-5 /hpf (0-5) 10/20/24 11:58 Ur Squamous Epith Cells 0-5 /hpf (0-5) 10/20/24 11:58 Amorphous Sediment Not Reportable 10/20/24 11:58 Urine Bacteria None seen /hpf (NONE) 10/20/24 11:58 Hyaline Casts 3.71 /lpf 10/20/24 11:58 All radiology interpretation(s) finalized by discharge Discharge Plan Discharge Patient Disposition: Home Clinical Impression: Fall from slip, trip, or stumble, Generalized hyperhidrosis, Hematuria, Minor closed head injury Condition: Stable Prescriptions: No Action aspirin [Adult Aspirin Regimen] 81 mg tablet,delayed release (DR/EC) 81 mg PO DAILY ropinirole 3 mg tablet 3 mg PO BID Qty: 180 3RF Rx Instructions: Take one tablet at 8am and 1 tablet at 8pm (DME) diabetic supplies, [employer]. Misc See Rx Instructions .ROUTE .MEDSUPPLY Qty: 100 12RF Rx Instructions: Please issue diabetic testing supplies:test strips lancets, etc. levothyroxine 25 mcg tablet 25 mcg PO DAILY Qty: 90 3RF omeprazole 20 mg capsule,delayed release(DR/EC) 20 mg PO DAILY Qty: 90 3RF metformin 500 mg tablet 500 mg PO DAILY Qty: 30 11RF carbidopa-levodopa 25-100 mg tablet 1 tab PO BID Qty: 180 3RF Rx Instructions: 1 tab at 10 AM and 1 tab at 2 PM lisinopril 20 mg tablet 20 mg PO DAILY Rx Instructions: TAKE 1 TABLET BY MOUTH EVERY DAY carbidopa-levodopa 50-200 mg tablet extended release 2 tab PO BID Rx Instructions: 2 tabs at 8 am and 2 tabs at noon amlodipine 10 mg tablet 10 mg PO DAILY Rx Instructions: Take 1 tablet by mouth daily. simvastatin 20 mg tablet 20 mg PO QPM Rx Instructions: Take 1 tablet by mouth at bedtime. dapagliflozin propanediol [Farxiga] 10 mg tablet 10 mg PO DAILY Rx Instructions: TAKE 1 TABLET BY MOUTH EVERY DAY Discharge Orders: Discharge ED (Routine); Ordered 10/20/24 Ordered By: Miki Barrow Referrals: Diego Lam DO [Primary Care Provider] - Discharge Diet: Usual diet Discharge Activity: Resume usual activity Patient Instructions: Opioid Safety, Pain Management, Hematuria - Male, Head Injury (DC) Activity Restrictions/Additional Instructions: Please follow-up with your primary care provider for recheck of your urine and mild amount of blood was noted. Tylenol or ibuprofen as needed for discomfort. Print Language: Yemeni Coding Level of Care Code ED Women Nurse for Alhaji Rodríguez
--- NOTE | 2024-10-20 11:46 | PC.PHAR ---
patient is from [facility] list in chart
[2024-10-20 12:08] LABS: Bilirubin Urine Negative (Negative); Blood Urine 2+ (Negative); Glucose Urine UA 3+ (Normal); Ketones Urine 1+ (Negative); Leukocyte Esterase Urine Negative (Negative); Nitrate Urine Negative (Negative); Protein Urine 1+ (Negative); Urine Appearance Clear (CLEAR); Urine Color Yellow (Yellow)
[2024-10-20 12:15] LABS: Add Urine Microscopic? YES; Bacteria Urine None Seen /hpf; Hyaline Casts Urine 3.71 /lpf; Squamous Epithelial Cell Urine 0-5 /hpf (0-5); WBC Urine 0-5 /hpf (0-5)
[2024-10-20 12:17] LABS: Specific Gravity, Urine 1.042 (1.005-1.030)
[2024-10-20 12:18] LABS: Add Urine Culture? Yes
[2024-10-20 13:18] VITALS: BP 128/70; PULSE 78; O2SAT 91
== END 2024-10-20 13:19 | disposition home or self-care (01) ==
PROVIDERS: Emergency Provider Student in an Organized Health Care Education/Training Program; PCP Family Medicine
DX: R61 Generalized hyperhidrosis (principal); R31.9 Hematuria, unspecified; S09.8XXA Other specified injuries of head, initial encounter; W19.XXXA Unspecified fall, initial encounter; Z79.82 Long term (current) use of aspirin; Z87.891 Personal history of nicotine dependence; E11.9 Type 2 diabetes mellitus without complications; I10 Essential (primary) hypertension
CPT/HCPCS: 70450; 81001; 87086; 99284

== ENCOUNTER 2024-11-17 16:30 | Outpatient (CLI) | payer MEDICARE, OTHER, SELFPAY ==
[2024-11-17 16:49] LABS: Basophils # 0.1 10^3/uL (0.0-0.1); Eosinophils # 0.1 10^3/uL (0.0-0.8); Eosinophils % 1.9 %; Hematocrit 41.2 % (37-53); Lymphocytes # 2.1 10^3/uL (0.8-4.8); Lymphocytes % 33.4 %; Mean Corpuscular HGB Conc 33.5 g/dL (30-55); Mean Corpuscular Hemoglobin 32.5 pg (27-33); Mean Corpuscular Volume 97.2 fl (82-101); Mean Platelet Volume 9.6 fL (7.4-10.4); Monocytes # 0.5 10^3/uL (0.2-0.9); Monocytes % 7.8 %; Neutrophils # 3.51 10^3/uL (1.8-7.7); Neutrophils % 55.6 %; Nucleated Red Blood Cells % 0 %; Platelet Count 189 10^3/cmm (157-399); Red Blood Count 4.24 10^6/uL (3.85-5.65); Red Cell Distribution Width 13.2 % (12.1-15.1); White Blood Count 6.31 10^3/uL (3.29-11.43)
[2024-11-17 17:17] LABS: Alanine Aminotransferase < 5 U/L (0-41); Albumin Level 4.1 g/dL (3.5-5.2); Alkaline Phosphatase 83 U/L (40-130); Aspartate Amino Transferase 12 U/L (0-40); Blood Urea Nitrogen 16 mg/dL (8-23); Calcium 9.3 mg/dL (8.5-10.5); Carbon Dioxide 27 mmol/L (22-29); Chloride 102 mmol/L (98-107); Chol HDL Ratio 2.89 mg/dL (1.0-5.00); Cholesterol 101 mg/dL (0-200); Globulin 2.6 g/dL (1.3-4.6); Glucose 179 mg/dL (65-115); HDL Cholesterol 35 mg/dL (60-100); LDL Cholesterol Calculated 49 mg/dL (50-129); Osmolality Calculated 296 mOsm/kg (285-295); Sodium 140 mmol/L (136-145); Total Bilirubin 0.7 mg/dL (0.15-1.2); Total Protein 6.7 g/dL (6.6-8.7); Triglycerides 86 mg/dL (0-150)
[2024-11-17 17:20] LABS: Estmated Average Glucose 197; Hemoglobin A1C 8.5 % (4.0-6.0)
== END 2024-11-17 16:31 | disposition home or self-care (01) ==
PROVIDERS: PCP Family Medicine; Visit Provider Family Medicine
DX: E11.9 Type 2 diabetes mellitus without complications (principal); E78.5 Hyperlipidemia, unspecified
CPT/HCPCS: 80053; 80061; 83036; 85025

== ENCOUNTER → 2024-12-19 11:24 | Outpatient (BNVA) | payer MEDICARE, OTHER, SELFPAY | PROVIDERS: PCP Family Medicine; Visit Provider Podiatrist Foot & Ankle Surgery | DX: E11.42 Type 2 diabetes mellitus with diabetic polyneuropathy (principal); L60.3 Nail dystrophy; G62.9 Polyneuropathy, unspecified; B35.3 Tinea pedis; Z79.84 Long term (current) use of oral hypoglycemic drugs | CPT/HCPCS: 11721 ==

== ENCOUNTER 2024-12-29 09:48 | Outpatient (CLI) | payer OTHER, MEDICARE, SELFPAY ==
[2024-12-29 10:12] LABS: Estmated Average Glucose 186; Hemoglobin A1C 8.1 % (4.0-6.0)
== END 2024-12-29 09:49 | disposition home or self-care (01) ==
PROVIDERS: PCP Family Medicine; Visit Provider Family Medicine
DX: E11.9 Type 2 diabetes mellitus without complications (principal); D64.9 Anemia, unspecified
CPT/HCPCS: 83036

== ENCOUNTER 2025-04-29 10:26 | Outpatient (CLI) | payer OTHER, MEDICARE, SELFPAY ==
[2025-04-29 11:08] LABS: Hematocrit 44.7 % (37-53); Hemoglobin 14.50 g/dL (11.27-16.99); Mean Corpuscular HGB Conc 32.4 g/dL (30-55); Mean Corpuscular Hemoglobin 31.5 pg (27-33); Mean Corpuscular Volume 97.0 fl (82-101); Nucleated Red Blood Cells % 0 %; Platelet Count 193 10^3/cmm (157-399); Red Blood Count 4.61 10^6/uL (3.85-5.65); White Blood Count 5.63 10^3/uL (3.29-11.43)
[2025-04-29 11:41] LABS: Alanine Aminotransferase 7 U/L (0-41); Albumin Level 4.6 g/dL (3.5-5.2); Alkaline Phosphatase 81 U/L (40-130); Anion Gap 17.9 (5-19); Aspartate Amino Transferase 9 U/L (0-40); Blood Urea Nitrogen 14 mg/dL (8-23); Calcium 10.0 mg/dL (8.5-10.5); Carbon Dioxide 28 mmol/L (22-29); Chloride 100 mmol/L (98-107); Globulin 2.9 g/dL (1.3-4.6); Glucose 231 mg/dL (65-115); Osmolality Calculated 302 mOsm/kg (285-295); Potassium 3.9 mmol/L (3.5-5.1); Sodium 142 mmol/L (136-145); Total Protein 7.5 g/dL (6.6-8.7)
== END 2025-04-29 10:27 | disposition home or self-care (01) ==
PROVIDERS: PCP Family Medicine; Visit Provider Family Medicine
DX: E11.9 Type 2 diabetes mellitus without complications (principal)
CPT/HCPCS: 80053; 85025

== ENCOUNTER → 2025-05-08 13:13 | Outpatient (BNVA) | payer MEDICARE, OTHER, SELFPAY | PROVIDERS: PCP Family Medicine; Visit Provider Podiatrist Foot & Ankle Surgery | DX: E11.42 Type 2 diabetes mellitus with diabetic polyneuropathy (principal); L60.3 Nail dystrophy; G62.9 Polyneuropathy, unspecified; Z79.84 Long term (current) use of oral hypoglycemic drugs | CPT/HCPCS: 11721 ==

== ENCOUNTER → 2025-07-11 14:10 | Outpatient (BNVA) | payer MEDICARE, OTHER, SELFPAY | PROVIDERS: PCP Family Medicine; Visit Provider Podiatrist Foot & Ankle Surgery | DX: E11.42 Type 2 diabetes mellitus with diabetic polyneuropathy (principal); L60.8 Other nail disorders; L60.3 Nail dystrophy; G62.9 Polyneuropathy, unspecified; Z79.84 Long term (current) use of oral hypoglycemic drugs | CPT/HCPCS: 11721 ==

== ENCOUNTER 2025-07-17 23:02 | Emergency (ER) | payer MEDICARE, OTHER, SELFPAY ==
[2025-07-17 22:55] VITALS: BP 147/85; PULSE 98; RESP 16; O2SAT 95; BMI 21.9
--- NOTE | 2025-07-17 22:55 | W.ED.GENADLT ---
HPI - General Adult General: Chief complaint: Abdominal Pain Stated complaint: left flank pain History of Present Illness: 75yo M w/pmhx of dementia, HLD, HTN, DM w/cc of sudden onset L flank pain that started this afternoon around 16:00. Patient states that he has not fallen or injured himself. Pain was worsened and aggravated with movement. Patient states that he has not had a fever, denies shortness of breath, cough, hemoptysis, chest pain or shortness of breath. Patient states that he is not experiencing abdominal pain. Flank pain has now spontaneously improved to 09/21. He denies dysuria, hematuria or h/o kidney stone. He states he has not had a bowel movement in 2 weeks or more, denies blood in stool. He states he has had previous hernia repair. Patient denies any lower extremity swelling. Patient is alert, awake and able to provide some history, though this may be limited due to dementia. Related Data Home Medications ?Medication ?Instructions ?Recorded ?Confirmed aspirin 81 mg tablet,delayed 81 mg PO DAILY 11/18/22 07/11/25 release (Adult Aspirin Regimen) amlodipine 10 mg tablet 10 mg PO DAILY 10/20/24 07/11/25 carbidopa ER 50 mg-levodopa 200 mg 2 tab PO BID 10/20/24 07/11/25 tablet,extended release dapagliflozin propanediol 10 mg 10 mg PO DAILY 10/20/24 07/11/25 tablet (Farxiga) lisinopril 20 mg tablet 20 mg PO DAILY 10/20/24 07/11/25 simvastatin 20 mg tablet 20 mg PO QPM 10/20/24 07/11/25 metformin 500 mg tablet 1,000 mg PO BID 12/19/24 07/11/25 Previous Rx's ?Medication ?Instructions ?Recorded diabetic supplies, [employer]. #100 ea 09/11/22 levothyroxine 25 mcg tablet 25 mcg PO DAILY #90 tabs 11/14/23 omeprazole 20 mg capsule,delayed 20 mg PO DAILY #90 caps 02/02/24 release benzonatate 100 mg capsule 100 mg PO TID PRN cough #20 caps 10/28/24 doxycycline hyclate 100 mg tablet 100 mg PO BID #14 tabs 10/28/24 carbidopa 25 mg-levodopa 100 mg 1 tab PO BID #28 tabs 12/14/24 tablet carbidopa ER 50 mg-levodopa 200 mg 2 tab PO BID #56 tabs 12/14/24 tablet,extended release ropinirole 3 mg tablet 3 mg PO BID #180 tabs 01/23/25 bisacodyl 10 mg rectal suppository 10 mg NV DAILY PRN constipation 07/18/25 #12 ea Allergies Allergy/AdvReac Type Severity Reaction Status Date / Time chocolate Allergy Unknown Verified 07/11/25 07:21 PFS ED PFSH: Medical History (Updated 07/18/25 @ 04:32 by Suzi Nunes MD) Cellulitis of lower extremity Hypothyroid Type 2 diabetes mellitus without complications Essential hypertension Parkinsons disease Social History Smoking and tobacco/nicotine status: never used tobacco/nicotine Alcohol intake: never Substance/Drug Use: never Physical Exam Narrative: EXAM NARRATIVE: Vital signs were reviewed. Patient is alert and oriented. Patient is breathing comfortably, no increased WOB or accessory muscle use. SpO2 is above 95% on RA. Patient has clear lungs b/l, no rhonchi, wheezing or crackles. No hypotension or tachycardia. Abdomen is soft, nondistended and nontender. No CVA tenderness with percussion of the flanks. Patient is moving all extremities, no deformity or gross injury. No lower extremity edema or asymmetry. Course Vital Signs: Vital signs: Vital Signs Pulse Rate 79 07/18/25 03:30 Respiratory Rate 16 07/17/25 22:55 Blood Pressure 133/75 07/18/25 03:30 Pulse Oximetry 92 07/18/25 03:30 [facility] - General Adult Medical Decision Making 75-year-old male presents with a chief complaint of left flank pain that was sudden, started this afternoon and has now spontaneously improved to /10. Differential diagnosis includes but is limited to, urinary tract infection, kidney stone, pyelonephritis, pneumonia, musculoskeletal pain, constipation, bowel obstruction, urinary retention, other. On exam he centrically stable. Patient was evaluate CBC, CMP, lipase, UA and CT scan of abdomen and pelvis. He was treated with p.o. Tylenol for pain. Patient has a normal white blood cell count and is not anemic. He has mild hypokalemia, potassium was replaced orally. He has adequate kidney function and normal LFTs. UA does show 6-10 white blood cells and 0-5 squamous cells, negative for leuk esterase, negative for nitrites. Patient denies dysuria, increased frequency or urgency. CT scan shows: CT imaging: IMPRESSION: 1. Atelectasis at the left lung base. Trace left pleural effusion. 2. Large volume fecal retention, correlate for constipation. On my examination, patient is pain-free. Will recommend a bowel regimen. At this time, patient is comfortable going home. Patient was counseled on supportive care at home, given return precautions and discharged in stable condition with recommendation for outpatient follow-up with primary care nurse or doctor. Lab Data 07/18/25 01:46 07/18/25 01:46 Radiology Impressions Abdomen/Pelvis CT 07/17/25 23:19 IMPRESSION: 1. Atelectasis at the left lung base. Trace left pleural effusion. 2. Large volume fecal retention, correlate for constipation. COMMENTS: Consistent with the [employer]'s Incidental Findings Committee white paper (J Am Pablito Radiol 2018): Any incidental renal lesion less than 1 cm or classified as too small to characterize, or any incidental cystic renal lesion characterized as simple-appearing, is likely benign. No follow-up imaging is recommended for these lesions per consensus recommendations based on imaging criteria. Laboratory Results WBC 9.55 10^3/uL (3.29-11.43) 07/18/25 01:46 RBC 4.04 10^6/uL (3.85-5.65) 07/18/25 01:46 Hgb 12.80 g/dL (11.27-16.99) 07/18/25 01:46 Hct 37.9 % (37-53) 07/18/25 01:46 MCV 93.8 fl (82-101) 07/18/25 01:46 MCH 31.7 pg (27-33) 07/18/25 01:46 MCHC 33.8 g/dL (30-55) 07/18/25 01:46 RDW 13.1 % (12.1-15.1) 07/18/25 01:46 Plt Count 148 10^3/cmm (157-399) L 07/18/25 01:46 MPV 8.9 fL (7.4-10.4) 07/18/25 01:46 Neut % (Auto) 68.3 % 07/18/25 01:46 Lymph % (Auto) 20.6 % 07/18/25 01:46 [place] % (Auto) 8.2 % 07/18/25 01:46 Eos % (Auto) 2.2 % 07/18/25 01:46 Baso % (Auto) 0.5 % 07/18/25 01:46 Neut # (Auto) 6.52 10^3/uL (1.8-7.7) 07/18/25 01:46 Lymph # (Auto) 2.0 10^3/uL (0.8-4.8) 07/18/25 01:46 [place] # (Auto) 0.8 10^3/uL (0.2-0.9) 07/18/25 01:46 Eos # (Auto) 0.2 10^3/uL (0.0-0.8) 07/18/25 01:46 Baso # (Auto) 0.1 10^3/uL (0.0-0.1) 07/18/25 01:46 Nucleated RBC % (auto) 0 % 07/18/25 01:46 Nucleated RBCs # 0.0 /100WBC 07/18/25 01:46 Sodium 139 mmol/L (136-145) 07/18/25 01:46 Potassium 3.2 mmol/L (3.5-5.1) L 07/18/25 01:46 Chloride 99 mmol/L (98-107) 07/18/25 01:46 Carbon Dioxide 27 mmol/L (22-29) 07/18/25 01:46 Anion Gap 16.2 (5-19) 07/18/25 01:46 BUN 10 mg/dL (8-23) 07/18/25 01:46 Creatinine 0.3 mg/dL (0.7-1.2) L 07/18/25 01:46 GFR Calculation Not Reportable 07/18/25 01:46 Glucose 148 mg/dL (65-115) H 07/18/25 01:46 Calculated Osmolality 290 mOsm/kg (285-295) 07/18/25 01:46 Calcium 9.5 mg/dL (8.5-10.5) 07/18/25 01:46 Total Bilirubin 1.3 mg/dL (0.15-1.2) H 07/18/25 01:46 AST 7 U/L (0-40) 07/18/25 01:46 ALT < 5 U/L (0-41) 07/18/25 01:46 Alkaline Phosphatase 67 U/L (40-130) 07/18/25 01:46 Total Protein 7.3 g/dL (6.6-8.7) 07/18/25 01:46 Albumin 4.0 g/dL (3.5-5.2) 07/18/25 01:46 Globulin 3.3 g/dL (1.3-4.6) 07/18/25 01:46 Lipase 14 U/L (13-60) 07/18/25 01:46 Urine Color Yellow (Yellow) 07/17/25 23:09 Urine Appearance Clear (CLEAR) 07/17/25 23:09 Urine pH 6.0 (5-7) 07/17/25 23:09 Ur Specific [place] 1.046 (1.005-1.030) H 07/17/25 23:09 Urine Protein Trace (Negative) A 07/17/25 23:09 Urine Glucose (UA) 2+ (Normal) H 07/17/25 23:09 Urine Ketones 1+ (Negative) H 07/17/25 23:09 Urine Blood Negative (Negative) 07/17/25 23:09 Urine Nitrate Negative (Negative) 07/17/25 23:09 Urine Bilirubin Negative (Negative) 07/17/25 23:09 Urine Urobilinogen 1.0 mg/dL (Negative) 07/17/25 23:09 Ur Leukocyte Esterase Negative (Negative) 07/17/25 23:09 Urine RBC 0-2 /hpf (0-2) 07/17/25 23:09 Urine WBC 6-10 /hpf (0-5) 07/17/25 23:09 Ur Squamous Epith Cells 0-5 /hpf (0-5) 07/17/25 23:09 Amorphous Sediment Not Reportable 07/17/25 23:09 Urine Bacteria None seen /hpf (NONE) 07/17/25 23:09 Hyaline Casts 0-4 /lpf H 07/17/25 23:09 All radiology interpretation(s) finalized by discharge Discharge Plan Discharge Patient Disposition: Home Clinical Impression: Acute left flank pain, Constipation, Hypokalemia Condition: Stable Prescriptions: New bisacodyl 10 mg suppository 10 mg NV DAILY PRN (Reason: constipation) Qty: 12 0RF No Action aspirin [Adult Aspirin Regimen] 81 mg tablet,delayed release (DR/EC) 81 mg PO DAILY doxycycline hyclate 100 mg tablet 100 mg PO BID Qty: 14 0RF benzonatate 100 mg capsule 100 mg PO TID PRN (Reason: cough) Qty: 20 0RF metformin 500 mg tablet 1,000 mg PO BID (DME) diabetic supplies, [employer]. Misc See Rx Instructions .ROUTE .MEDSUPPLY Qty: 100 12RF Rx Instructions: Please issue diabetic testing supplies:test strips lancets, etc. levothyroxine 25 mcg tablet 25 mcg PO DAILY Qty: 90 3RF omeprazole 20 mg capsule,delayed release(DR/EC) 20 mg PO DAILY Qty: 90 3RF carbidopa-levodopa 25-100 mg tablet 1 tab PO BID Qty: 28 0RF Rx Instructions: 1 tab at 10 AM and 1 tab at 2 PM carbidopa-levodopa 50-200 mg tablet extended release 2 tab PO BID Qty: 56 0RF Rx Instructions: Take 2 at 8 am and 2 at noon ropinirole 3 mg tablet 3 mg PO BID Qty: 180 3RF Rx Instructions: Take one tablet at 8am and 1 tablet at 8pm lisinopril 20 mg tablet 20 mg PO DAILY Rx Instructions: TAKE 1 TABLET BY MOUTH EVERY DAY carbidopa-levodopa 50-200 mg tablet extended release 2 tab PO BID Rx Instructions: 2 tabs at 8 am and 2 tabs at noon amlodipine 10 mg tablet 10 mg PO DAILY Rx Instructions: Take 1 tablet by mouth daily. simvastatin 20 mg tablet 20 mg PO QPM Rx Instructions: Take 1 tablet by mouth at bedtime. dapagliflozin propanediol [Farxiga] 10 mg tablet 10 mg PO DAILY Rx Instructions: TAKE 1 TABLET BY MOUTH EVERY DAY Discharge Orders: Discharge ED (Routine); Ordered 07/18/25 Ordered By: Suzi Nunes Referrals: Diego Lam DO [Primary Care Provider, Family Practice] Patient Instructions: Abdominal Pain (ED), Opioid Safety, Pain Management, Patient Portal & [place] Instructions Activity Restrictions/Additional Instructions: You have been noted to be quite constipated on your CT scan. I recommend you increase your intake of fruits and vegetables. Please take docusate and senna combination twice a day. You may also take a daily dose of MiraLAX. Use a daily suppository. If you continue to be constipated, you can try [id number] enema. Increase your intake of potassium rich foods as your potassium was a little bit low today. Please follow-up with your primary care physician within 1 week. If your condition worsens or additional concerns arise, please return to the emergency department for reassessment. Print Language: Sudanese Coding Level of Care Code ED Certified Nurse Operating Room for Alhaji Rodríguez
[2025-07-17 22:58] VITALS: BP 139/80; PULSE 88; O2SAT 95
--- OUTSIDE RECORDS SUMMARY | 2025-07-17 23:08 | XMS_ITS | Patient Health Record ---
Author Organization [facility] Address [address] [place] [address] Care Team Providers Care Smoke Tester Name Role Phone Aaa, Provider Primary Care Provider Hema Hester [phone] Allergies No Known Allergies Reason For Referral No Information Medications Medication SIG (Take, Route, Frequency, Duration) Notes Start Date End Date Status Simvastatin 20 MG 1 tablet in the evening Orally Once a day; Duration: 90 days Patient needs appt with new PCP before any further refills Active Carbidopa-Levodopa 25-100 MG 1 Oral daily Active Spiriva HandiHaler 18 MCG TAKE 1 CAPSULE BY MOUTH EVERY DAY Inhalation Once a day; Duration: 90 days Active Omeprazole 40 mg take 1 capsule BY MOUTH EVERY MORNING 30 minutes before morning meal; Duration: 90 Active Triamcinolone Acetonide 0.1 % Apply External To affected areas legs two times daily 10/05/2017 Active OneTouch Verio - 1 strip In Vitro daily; Duration: 90 days May substitute with strips covered by insurance. DX: E11.9 02/15/2022 Active MiraLax - 17 Gram Oral daily 10/09/2016 Active Lancets 33G - one lancet daily; Duration: 90 days May substitute with lancets covered by insurance. DX: E11.9 02/15/2022 Active Triamcinolone Acetonide 0.1 % Apply External to BID groin rash 01/10/2019 Active Lotrisone 1-0.05 % 1 (one) External three times daily as needed. not for continuous loss prevention representative use 10/22/2016 Active OneTouch Verio w/Device as directed May substitute with glucometer covered by insurance. DX: E11.9 02/15/2022 Active amLODIPine Besylate 10 MG 1 tablet Orally Once a day; Duration: 90 days Patient needs appt before any further refills Active Albuterol Sulfate HFA 108 (90 Base) MCG/ACT 2 puff as needed Inhalation every 4 hrs; Duration: 90 days Active Laine Countour TS Test Strips 1 Strip In Vitro daily 02/21/2013 Active Carbidopa-Levodopa ER 50-200 MG 1 tablet Orally three times a day; Duration: 30 day(s) 03/19/2022 Active Farxiga 10 MG TAKE 1 TABLET BY MOUTH EVERY DAY; Duration: 90 Active metFORMIN HCl 500 MG 1 tablet with a meal Orally Once a day; Duration: 90 days 02/15/2022 Active Aspirin 325 MG 1 Oral daily 09/22/2011 A ctive Lisinopril 20 MG TAKE 1 TABLET BY MOUTH EVERY DAY; Duration: 90 Active Requip 3 MG 1 Oral three times daily taking four times daily 10/10/2014 Active Immunizations Vaccine Route Administration Date Status Comme nts *Influenza, high dose seasonal (Fluzone) IM Intramuscular 06/05/2021 Administered *Tdap (Boostrix) OTH Other/Miscellaneous 01/16/2010 Administered Influenza, high dose seasonal IM Intramuscular 06/12/2015 Administered Influenza, high dose seasonal IM Intramuscular 07/05/2016 Administered Influenza, high dose seasonal IM Intramuscular 05/26/2017 Administered Influenza, high dose seasonal IM Intramuscular 07/04/2018 Administered Influenza, high dose seasonal IM Intramuscular 06/04/2020 Administered Influenza, injectable, quadrivalent IM Intramuscular 06/10/2014 Administered Influenza, seasonal, injectable (split), for 3 yrs and up OTH Other/Miscellaneous 07/13/2002 Administered Influenza, seasonal, injectable (split), for 3 yrs and up OTH Other/Miscellaneous 07/03/2003 Administered Influenza, seasonal, injectable (split), for 3 yrs and up OTH Other/Miscellaneous 08/24/2006 Administered Influenza, seasonal, injectable (split), for 3 yrs and up IM Intramuscular 06/06/2012 Administered Influenza, seasonal, injectable (split), for 3 yrs and up IM Intramuscular 06/08/2013 Administered TripConnect COVID-19 30mcg/0.3ml (Old) IM Intramuscular 10/04/2020 Administered Pfizer-BioNTech COVID-19 30mcg/0.3ml (Old) IM Intramuscular 10/25/2020 Administered Pfizer-BioNTech COVID-19 30mcg/0.3ml (Old) IM Intramuscular 06/17/2021 Administered Pneumococcal conjugate PCV 13 IM Intramuscular 03/29/2016 Administered Pneumococcal polysaccharide PPV23 IM Intramuscular 06/06/2012 Administered Td (adult), adsorbed OTH Other/Miscellaneous 10/13/1999 Administered Zoster SC Subcutaneous 04/16/2015 Partially Administered Zoster Unknown 12/01/2020 Administered [facility] Social History Tobacco Use: Social History Observation Description Date Details (start date - stop date) Never Smoker NA - NA Tobacco Use/Smoking Question Answer Notes Are you a: never smoker Tobacco use other than smoking: Question Answer Notes Are you an other tobacco user? No Problems Problem Type SNOMED Code ICD Code Onset Dates Problem Status W/U Status Risk Notes Problem Dysphagia (71148822) PHARYNGOESOPHAG EAL DYSPHAGIA (R13.14) Active confirmed Problem Macrocytosis - no anemia (512297433) MACROCYTOSIS WITHOUT ANEMIA (D75.89) Active confirmed Problem Dysphagia (85579479) DYSPHAGIA (R13.10) Active confirmed Problem Hypoglycemia (044817520) HYPOGLYCEMIA (E16.2) Active confirmed Problem Hyperlipidaemia (51961807) HYPERLIPIDEMIA, UNSPECIFIED HYPERLIPIDEMIA TYPE (E78.5) Active confirmed Problem TYPE 2 DIABETES MELLITUS WITH HYPERLIPIDEMIA (E11.69) Active confirmed Problem Parkinsons disease (99196121) PARKINSONS DISEASE (G20) Active confirmed Problem Metabolic syndrome (621949307) Metabolic syndrome (E88.81) Active confirmed Comment:we are monitoring components of this syndrome weight blood pressure glucose triglycerides HDL cholesterol,St ory:we are monitoring components of this syndrome weight blood pressure glucose triglycerides HDL cholesterol, Problem Essential hypertension (81066803) Essential (primary) hypertension (I10) Active confirmed Problem Amanda's esophagus (243558329) 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) Active confirmed Problem Type II diabetes mellitus without complication (581147392) Type 2 diabetes mellitus without complication, unspecified whether loss prevention representative insulin use (E11.9) Active confirmed Problem Hyperlipidemia (75817015) HYPERLIPIDEMIA LDL GOAL <130 (E78.5) Active confirmed Problem Hypertension (68734812) HYPERTENSION (I10) Active confirmed Problem Chronic obstructive pulmonary disease (80298785) COPD, MODERATE (J44.9) Active confirmed Problem hypercholesterolem ia (disorder) (65822330) HYPERCHOLESTERE AZUL (E78.00) Active confirmed Problem H/O PARKINSON'S DISEASE (Z86.69) Active confirmed Problem Benign essential hypertension (4429548) HYPERTENSION, ESSENTIAL, BENIGN (I10) Active confirmed Problem History of malignant neoplasm of skin (143301969) HISTORY OF SKIN CANCER (Z85.828) Active confirmed 2009 BCC L cheek, 2016 BCC L restoration, 2018 milagros R restoration, 2019 BCC L nose, 2019 BCC L neck, 2019 BCC R neck Problem Colon cancer screening (501849207) COLON CANCER SCREENING (Z12.11) Active confirmed Comment:he has had 2 colonoscopies 1999 2009 2 hyperplastic polyps in 2009 10 year follow up advised Hema Meza MD 09/19/2015, Problem Tinea corporis (03479854) Tinea corporis (B35.4) Inactive confirmed Description:TI KRISTOPHER CORPORIS Problem Basal cell carcinoma of face (835788968) Basal cell carcinoma of skin of other parts of face (C44.319) Inactive confirmed Problem Hypokalemia (17052929) Hypokalemia (E87.6) Inactive confirmed Comment:hctz was discontinued repeat lab, Problem Impacted cerumen (65242875) Impacted cerumen, right ear (H61.21) Inactive confirmed Problem Constipation (88921598) Other constipation (K59.09) Inactive confirmed Comment:x-ray showed very large amount of stool within the colon, Problem Psoriasis vulgaris (902627159) Psoriasis vulgaris (L40.0) Inactive confirmed Problem Skin changes due to chronic exposure to non-ionizing radiation (336461785) Other skin changes due to chronic exposure to nonionizing radiation (L57.8) Inactive confirmed Description:DE RMATOHELIOSIS Problem Sebaceous cyst (100870180) Sebaceous cyst (L72.3) Inactive confirmed Problem Right upper quadrant pain (201209563) Right upper quadrant pain (R10.11) Inactive confirmed Description:AB DOMINAL PAIN, RIGHT UPPER QUADRANT Problem Removal of suture (20397424) Encounter for removal of sutures (Z48.02) Inactive confirmed Description: SIT FOR SUTURE REMOVAL Problem Essential hypertension (31102810) Essential hypertension (I10) Inactive confirmed Problem Counseling (049512157) ENCOUNTER FOR EDUCATION (Z71.9) Inactive confirmed Problem General examination of patient (059455469) ROUTINE MEDICAL EXAM (Z00.00) Inactive confirmed Comment:Usual age appropriate precautions and guidance given. return to clinic 3 months 30 mintue visit, Problem Body mass index 25-29 - overweight (885791723) ADULT BODY MASS INDEX 28.0-28.9 (Z68.28) Inactive confirmed Description:DEIDRA DY MASS INDEX (BMI) OF 28.0-28.9 IN ADULT Problem Seborrheic dermatitis (79491453) DERMATITIS, SEBORRHEIC (L21.9) Inactive confirmed Problem ASPIRATION PNEUMONIA OF BOTH UPPER LOBES, UNSPECIFIED ASPIRATION PNEUMONIA TYPE (J69.0) Inactive confirmed Problem Body mass index 25-29 - overweight (398051942) BODY MASS INDEX (BMI) OF 27.0-27.9 IN ADULT (Z68.27) Inactive confirmed Problem DM - Diabetes mellitus (88360969) DM (DIABETES MELLITUS) (E11.9) Inactive confirmed Problem Depression screening (910249786) SCREENING FOR DEPRESSION (Z13.31) Inactive confirmed Description:DE PRESSION SCREEN (V79.0 Z13.89) Problem Lichen simplex chronicus (disorder) (02090304) NEURODERMATITIS (L28.0) Inactive confirmed Problem Screening for malignant neoplasm of prostate (626039894) SCREENING FOR MALIGNANT NEOPLASM, PROSTATE (V76.44) (Z12.5) Inactive confirmed Comment:psa within normal limits continue current medication,Sto ry:PSA 0.4 PSA 0.5 , Problem History of malignant neoplasm of skin (situation) (290303044) PERSONAL HISTORY OF SKIN CANCER (Z85.828) Inactive confirmed Problem Amanda's esophagus (594751701) AMANDA'S ESOPHAGUS WITH DYSPLASIA (K22.719) Inactive confirmed Problem Adult health examination (323543052) ENCOUNTER FOR HEALTH MAINTENANCE EXAMINATION (Z00.00) Inactive confirmed Description:HE ALTH MAINTENANCE EXAMINATION (Z00.00) Problem Overweight (867624419) BODY MASS INDEX (BMI) OF 25.0 TO 29.9 (278.02) Inactive confirmed Description:OV ERWEIGHT (BMI 25.0-29.9) Problem Type II diabetes mellitus uncontrolled (971608553) DIABETES MELLITUS TYPE 2, UNCONTROLLED, WITHOUT COMPLICATIONS (250.02) Inactive confirmed Problem Type II diabetes mellitus without complication (461083944) TYPE II DIABETES MELLITUS, WELL CONTROLLED (E11.9) Inactive confirmed Comment:contin ue current medication monitor lab continue yearly eye exam, Problem DIARRHEA, INFECTIOUS, ADULT (A09) Inactive confirmed Problem YEAST INFECTION OF THE SKIN (B37.2) Inactive confirmed Problem Dietary management surveillance (462647888) ENCOUNTER FOR DIETARY COUNSELING AND SURVEILLANCE (Z71.3) Inactive confirmed Comment:Discus sed with patient the importance of weight loss, and achieving a healthy weight. Reviewed ways to set realistic goals, manage portion sizes, decrease caloric intake, increase physical activity and encouraged them to monitor their weight on a regular basis.,Descrip tion:DIETARY COUNSELING Problem Requires vaccination (132930486) ENCOUNTER FOR ZOSTAVAX ADMINISTRATION (Z23) Inactive confirmed Description:IL OPHYLACTIC VACCINATION AGAINST OTHER VIRAL DISEASES (V04.89) Problem ASPIRATION, CHRONIC PULMONARY, SUBSEQUENT ENCOUNTER (T17.908D) Inactive confirmed Problem Pneumonia (943380088) PNEUMONIA (J18.9) Inactive confirmed Problem BASAL CELL CARCINOMA OF SCALP OR SKIN OF NECK (C44.41) Inactive confirmed Problem Fungal dermatitis (24417163) FUNGAL DERMATITIS (B36.9) Inactive confirmed Problem Osteoarthritis of hip (406600116) DJD (DEGENERATIVE JOINT DISEASE) OF HIP (M16.9) Inactive confirmed Comment:take aleve as needed. Avoid high impact exercise but walking is good. Wear well padded shoes. Let me know if the pain increases and I will send you for an injection.,Talha cription:DJD (DEGENERATIVE JOINT DISEASE) OF HIP Problem Diabetic retinal eye exam (procedure) (553359064) DIABETIC EYE EXAM (Z01.00) Inactive confirmed Comment:he gets these yearly with Dr. Osorio usually in the summer,Story:aranza welsh gets these yearly with Dr. Osorio usually in the summer, Problem Flu vaccine needed (0226224886156) FLU VACCINE NEED (Z23) Inactive confirmed Description:IL OPHYLACTIC VACCINATION AGAINST INFLUENZA Problem Gastroesophageal reflux disease (830448741) GERD (GASTROESOPHAGE AL REFLUX DISEASE) (K21.9) Inactive confirmed Problem Pneumococcal conjugate vaccination (646333845212964) NEED FOR PROPHYLACTIC VACCINATION AGAINST STREPTOCOCCUS PNEUMONIAE (PNEUMOCOCCUS) (Z23) Inactive confirmed Description:IL OPHYLACTIC VACCINATION AGAINST STREPTOCOCCUS PNEUMONIAE (V03.82) Problem Removal of suture (24186905) VISIT FOR SUTURE REMOVAL (Z48.02) Inactive confirmed Problem Malignant neoplastic disease (disorder) (037095276) NEOPLASM OF BONE, SOFT TISSUE, AND SKIN (D49.2) Inactive confirmed Description:NE OPLASM OF UNSPECIFIED BEHAVIOR OF BONE, SOFT TISSUE, AND SKIN Problem Elevated blood-pressure reading without diagnosis of hypertension (235543041) ELEVATED BLOOD PRESSURE READING (R03.0) Inactive confirmed Problem Pulmonary aspiration (97477532) PULMONARY ASPIRATION (T17.900A) Inactive confirmed Problem Immunization education (504718307) IMMUNIZATION COUNSELING (Z71.89) Inactive confirmed Comment:discus sed new shingles vaccine shingrix, Problem RECENT SKIN CHANGES (R23.9) Inactive confirmed Comment:lesion on left side of nose irritation of left side of scrotum he will see dermatology later today, Problem Gastroesophageal reflux disease (774765737) GASTROESOPHAGEA L REFLUX DISEASE, ESOPHAGITIS PRESENCE NOT SPECIFIED (K21.9) Inactive confirmed Problem Parkinson's disease (67176848) PARALYSIS AGITANS (332.0) (332.0) Inactive confirmed Story:Dr. Casas,Desc ription:LICHA SON'S (332.0) Problem Gastroesophageal reflux disease (disorder) (258684668) CHRONIC GERD (K21.9) Inactive confirmed Problem Uncontrolled type 2 diabetes mellitus (305119211) UNCONTROLLED TYPE 2 DIABETES MELLITUS (E11.65) Inactive confirmed Description:DI ABETES MELLITUS TYPE 2, UNCONTROLLED Problem Pure hyperglyceridemia (233294630) HYPERGLYCERIDEM IA (E78.1) Inactive confirmed Comment:i bishnu current treatment., Problem Ventral hernia (786364867) VENTRAL HERNIA (K43.9) Inactive confirmed Problem Current non smoker but past smoking history unknown (finding) (511087031) CURRENT NON-SMOKER (Z78.9) Inactive confirmed Description:CU RRENT NON-TOBACCO USE Problem Influenza immunization (61495042) NEED FOR PROPHYLACTIC VACCINATION AND INOCULATION AGAINST INFLUENZA (Z23) Inactive confirmed Description: IL OPHYLACTIC VACCINATION AGAINST INFLUENZA (V04.81) Problem Impacted cerumen (86196950) EXCESSIVE CERUMEN IN BOTH EAR CANALS (H61.23) Inactive confirmed Problem Requires vaccination (240268585) NEED FOR IMMUNIZATION AGAINST INFLUENZA (Z23) Inactive confirmed Description: IL OPHYLACTIC VACCINATION AGAINST INFLUENZA Problem Ex-tobacco user (finding) (337933138) HISTORY OF TOBACCO USE (Z87.891) Inactive confirmed Problem 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) Inactive confirmed Problem Pain in left foot (911632430691705) LEFT FOOT PAIN (M79.672) Inactive confirmed Problem Pulmonary infiltrate (310766771) PULMONARY INFILTRATE (R91.8) Inactive confirmed Problem Multiple actinic keratoses (disorder) (251228400) ACTINIC KERATOSES (L57.0) Inactive confirmed Description:AC TINIC KERATOSIS Problem Dysphagia (07258990) SWALLOWING PROBLEM (R13.10) Inactive confirmed Problem Epidermoid cyst of skin (478029515) EPIDERMOID CYST OF SKIN (L72.0) Inactive confirmed Description: EP IDERMAL CYST Problem Pneumococcal pneumonia (344846409) PNEUMONIA OF BOTH UPPER LOBES DUE TO INFECTIOUS ORGANISM (J18.1) Inactive confirmed Comment:Left sided multifocal with slightly pleural effusion chest xray today return to clinic one week 15 minute visit, Problem Dermatitis (402030589) DERMATITIS, ECZEMATOID (L30.9) Inactive confirmed Comment:scrotu m pink, no scaling.,Descr iption:ECZEMA Problem Rash (544797104) RASH (R21) Inactive confirmed Comment:2 lesions on left lower extremity near ankle about 3 cm in diameter round scale at periphery almost looks lightly atrophied 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 will treat with lotrisone keep scheduled follow up with dermatology later this fall Hema Meza MD 06/12/2015, Problem Keratosis seborrheica (19228504) KERATOSIS SEBORRHEICA (L82.1) Inactive confirmed Comment:gurdeep,Suleiman escription:RAFAELA ORRHEIC KERATOSIS Problem Functional assessment (26441516) ENCOUNTER FOR RISK AND FUNCTIONAL ASSESSMENT OF PATIENT (Z13.9) Inactive confirmed Description: RI SK AND FUNCTIONAL ASSESSMENT Plan Of Treatment Pending Test Test Name Order Date DESTRUCTION PREMALIGNANT LESION: FIRST - 01/06/2021 DESTRUCTION PREMALIGNANT LESION: FIRST - 05/22/2021 DESTRUCTION PREMALIGNANT LESION: FIRST - 07/10/2021 DESTRUCTION PREMALIGNANT LESIONS, 2-14 L ESIONS - [id number] 07/10/2021 DESTRUCTION PREMALIGNANT LESIONS, 2-14 L ESIONS - [id number] 01/06/2021 Pathology Report 03/23/2022 Venipuncture[i] 11/28/2020 Venipuncture[i] 06/01/2021 Future Test Test Name Order Date VITAMIN B12 co 11/19/2021 CBC (Complete Blood Count) 05/22/2022 CMP (Comprehensive Metabolic Panel) 05/13 Hemoglobin A1C 05/22/2022 Lipid Profile 05/22/2022 PSA 05/22/2022 Insurance Providers Payer Name Payer Address Payer Phone Subscriber Number Group Number Insured Name Patient Relationship to Insured Coverage Start Date Coverage End Date [facility] MEDICARE PART B [address] [address] [place] [address] [id number] ANIYAH NADEGE Self - patient is the insured [facility] 2NDARY TO MEDICARE [address] [place] [address] [id number] TRISTEN DILLLEY Self - patient is the insured [facility] MEDICARE PART B [address] [address] [place] [address] [id number] TRISTEN DILLLEY Self - patient is the insured [facility] 2NDARY TO MEDICARE [address] [place] [address] [id number] NADEGE DILL Self - patient is the insured Medical (General) History Medical History History ICD Code AMANDA'S ESOPHAGUS WITHOUT DYSPLASIA, P roblemStatus: Active, BASAL CELL CARCINOMA OF SCALP OR SKIN OF NECK, ProblemStatus: Active, BASAL CELL CARCINOMA OF SKIN OF OTHER PA RTS OF FACE, ProblemStatus: Active, CHRONIC GERD, ProblemStatus: Active, COPD, MODERATE, ProblemStatus: Active, DIABETES MELLITUS TYPE 2, UN CONTROLLED, WITHOUT COMPLICATIONS, ProblemStatus: Active, DIARRHEA, INFECTIOUS, ADULT, ProblemStat us: Active, DM (DIABETES MELLITUS), ProblemStatus: A ctive, ESSENTIAL HYPERTENSION, ProblemStatus: A ctive, FUNGAL DERMATITIS, ProblemStatus: Active , GASTROESOPHAGEAL REFLUX DISE ASE, ESOPHAGITIS PRESENCE NOT SPECIFIED, ProblemStatus: Active, GERD (GASTROESOPHAGEAL REFLUX DISEASE), ProblemStatus: Active, H/O PARKINSON'S DISEASE, ProblemStatus: Active, HYPERCHOLESTEREMIA, ProblemStatus: Activ e, HYPERGLYCERIDEMIA, ProblemStatus: Active , HYPERLIPIDEMIA LDL GOAL < 130, ProblemSt atus: Active, HYPERTENSION, ESSENTIAL, LAISHA IGN, AttributeTitle: Onset or Dx Date, Value: Date: 09/2011, ProblemStatus: Active, KERATOSIS SEBORRHEICA, DESCR IPTION: SEBORRHEIC KERATOSIS, ProblemStatus: Active, METABOLIC SYNDROME, COMMENTS: we are mon itoring components of this syndrome NEOPLASM OF BONE, SOFT TISSU E, AND SKIN, DESCRIPTION: NEOPLASM OF UNSPECIFIED BEHAVIOR OF BONE, SOFT TISSUE, AND SKIN, ProblemStatus: Active, NEURODERMATITIS, ProblemStatus: Active, PARALYSIS AGITANS (332.0), D ESCRIPTION: PARKINSON'S (332.0), COMMENTS: Dr. Casas, ProblemStatus: Active, PULMONARY ASPIRATION, ProblemStatus: Act jayjay, PULMONARY INFILTRATE, ProblemStatus: Act jayjay, Skin Cancer, ProblemStatus: Active, SQUAMOUS CELL CARCINOMA IN S ITU OF SKIN OF RIGHT RESTORATIONISM REGION, ProblemStatus: Active, SWALLOWING PROBLEM, ProblemStatus: Activ e, TYPE II DIABETES MELLITUS, WELL CONTROLL ED, ProblemStatus: Active, Surgical History Surgery Date(Month/Year) Skin Cancer Removal, ProblemStatus: Acti ve, Hernia Repair, ProblemStatus: Active,
--- OUTSIDE RECORDS SUMMARY | 2025-07-17 23:08 | XMS_ITS | Clinical Summary ---
Author Organization [facility] Address [address] [place] [address] Phone Care Team Providers Care Hydraulic Blocker Name Role Phone Diego Lam Primary Care Provider Allergies Active Allergy Reactions Criticality Noted Date Comments Ciprofloxacin Hives High 12/04/2023 Codeine Hives,Confusion High 12/04/2023 Pantoprazole Hives,Diarrhea,Abdominal Pain High 11/11 Medications levothyroxine 25 mcg tablet Take 25 mcg by mouth daily in the morning. Active simvastatin (ZOCOR) 20 mg tablet Take 20 mg by mouth daily at bedtime. Active rOPINIRole (REQUIP) 3 mg Tablet Take 3 mg by mouth 2 times daily. Active amLODIPine (NORVASC) 10 mg tablet Take 10 mg by mouth daily. Active dapagliflozin propanediol (Farxiga) 10 mg Tablet Take 10 mg by mouth daily. Active lisinopriL (PRINIVIL) 20 mg tablet Take 20 mg by mouth daily. Active omeprazole (PriLOSEC) 20 mg Capsule, Delayed Release(E.C.) Take 20 mg by mouth daily. Active metFORMIN (GLUCOPHAGE) 500 mg tablet Take 500 mg by mouth daily with breakfast. Active carbidopa-levod opa (SINEMET CR) 50-200 mg Controlled Release tablet Take 2 Tablets by mouth see administration instructions. Take at 0800 and 1200 Active carbidopa-levod opa (PARCOPA) 25-100 mg Tablet, Rapid Dissolve Place 1 Tablet inside cheek see administration instructions. Take at 1000 and 1400 Active Active Problems Problem Noted Date Diagnosed Date SAH (subarachnoid hemorrhage) 12/04/2023 Family History Medical History Relation Name Comments No Known Problems Brother No Known Problems Daughter No Known Problems Father No Known Problems Maternal Grandfather No Known Problems Maternal Grandmother No Known Problems Mother No Known Problems Other No Known Problems Paternal Grandfather No Known Problems Paternal Grandmother No Known Problems Sister No Known Problems Son Relation Name Status Comments Brother Daughter Father Maternal Grandfather Maternal Grandmother Mother Other Paternal Grandfather Paternal Grandmother Sister Son Social History Tobacco Use Types Packs/Day Years Used Date Smoking Tobacco: Some Days Cigarettes Smokeless Tobacco: Never Tobacco Cessation:Ready to Q uit: Not Asked; Counseling Given: Not Answered Alcohol Use Standard Drinks/Week Comments Never 0 (1 standard drink = 0.6 oz pur e alcohol) Feeling Safe Answer Date Recorded Are you in a relationship wi th someone who hurts you emotionally and/or physically? No 12/03/2023 Food Insecurity Answer Date Recorded Social/Environmental Concerns No concerns Transportation Needs Answer Date Record ed Social/Environmental Concerns No concerns Housing Stability Answer Date Recorded Social/Environmental Concerns No concerns Utility Needs Answer Date Recorded Social/Environmental Concerns No concerns Sex and Gender Information Value Date Recorded Sex Assigned at Not on file Legal Sex Male 7:31 PM CDT Gender Identity Not on file Sexual Orientation Not on file Occupation Industry Job Start Date Job End Date retired Not on file Not on file Not on file Last Filed Vital Signs Vital Sign Reading Time Taken Comments Blood Pressure 141/88 12/04/2023 11:45 AM CDT nurse informed Pulse 91 12/04/2023 11:45 AM CDT Temperature 36.4 C (97.5 F) 12/04/2023 11:45 AM CDT Respiratory Rate 16 12/04/2023 11:4 5 AM CDT Oxygen Saturation 96% 12/04/2023 11: 45 AM CDT Inhaled Oxygen Concentration - - Weight 72 kg (158 lb 11.7 oz) 3:00 AM CDT Height 175.3 cm (5' 9 ) 12/03/2023 9:30 PM CDT Body Mass Index 23.44 12/03/2023 9:30 PM CDT Plan of Treatment Health Maintenance Due Date Last Done Comments DTAP/TDAP/TD VACCINES (1 - Tdap) 1969 PNEUMOCOCCAL VACCINE 50+ YEARS (1 of 2 - PCV) 06/09/19 69 COLORECTAL SCREENING 1995 Colorectal Cancer Screening 1995 FIT-DNA Q 3 years 1995 FIT/FOBT Q 1 year 1995 Flex Sig/CT Colonography Q 5 years 1995 ZOSTER VACCINE (1 of 2) 2000 INFLUENZA VACCINE (#1) 2025 RSV VACCINE (60+ or ) (1 - 1-dose 75+ series) 2025 Insurance MEDICARE PART A AND B [facility] Advance Directives For more information, please contact: [phone] Documents on File Type Date Recorded Patient Sr Vice President Expl anation Advance Directive POA 12/03/2023 10:17 PM Advance Directive POA * Full Code (Latest Code Status on File) Date Activated Date Inactivated Comments 12/04/2023 8:05 AM 12/04/2023 5:09 PM Care Teams Hydraulic Blocker Relationship Specialty Start Date End Date Diego Lam DO [address] [id number] PCP - General Family Practice 12/03/23
--- OUTSIDE RECORDS SUMMARY | 2025-07-17 23:08 | XMS_ITS | Data Portability ---
Author Organization [facility] Mir Verma [facility] Flavio Candelaria [facility] Address [address] [place] [phone] Care Team Providers Care Loft Worker Apprentice Name Role Phone JIE GUZMAN Primary Care Provider Assessment Encounter Date Assessment Date Assessment LastModified by Organization Details LastModified Time 04/26/2025 04/26/2025 No medication changes. We will order labs today. [email or web address] Not available 05/02/2025 14:10:31 Plan of Treatment Reminders Order Date Submit Date Provider Last Modified By Organization Details Last Modified Time Details Appointments None recorded. Lab None recorded. Referral None recorded. Procedures None recorded. Surgeries None recorded. Imaging None recorded. Medication Orders metformin 1,000 mg tablet 2024 025 [facility] Delivery, [address], [place], [place], [id number], 18:20:22 Patient TargetsNo targets recorded. Patient InstructionsNo instructions recorded. Reason for Referral None Reported. Results Created Date Observation Date Name Description Value Unit Range Abnormal Flag Note LastModifiedBy Organization Detail LastModifiedTime 02/23/2002/22/2025 COLOG UARD cologuard result reportable Sample Could Not Be Proces sed n/a The Colog uard Plus (TM) test was assig mj to this speci men. The colle ction kit was damag ed prior to recei pt in the labor atory . The patie nt will be conta cted to initi ate a new sampl e colle ction . Not Available [facility] [address], [place], [address], 02/25/2025 11:55:28 03/08/20 25 03/08/2025 COLOG UARD cologuard result reportable Negati ve negati ve normal The Colog uard Plus (TM) test was perfo rmed on this speci men. NEGAT CANDICE TEST RESUL T. A negat candice (norm al) Colog uard Plus resul t means the patie nt has a less- than- avera ge chanc e of havin g color ectal cance r (CRC) or advan lacy preca ncer (poly ps or lesio ns that could becom e cance r). Negat candice is the keo l value (refe rence range ) for this assay . Guide lines recom mend scree racquel again 3 years after a negat candice Colog uard Plus resul t. Tay nued scree racquel incre ases the chanc e of findi ng CRC early or preve nting it entir melissa. A clini kobi valid ation study showe d the Colog uard Plus test is effec tive at rulin g out CRC. Out of every 10,00 0 patie nts testi ng negat candice, appro ximat melissa 2 will be false ly reass ured that they do not have CRC, and out of every 100 patie nts testi ng negat candice, appro ximat melissa 7 patie nts will be false ly reass ured they do not have advan lacy preca ncer. TEST DESCR IPTIO N: The Colog uard Plus test is a multi -targ et stool DNA (mt-s DNA) test that niki zes DNA and hemog lobin bioma rkers in stool . It uses a propr ietar y algor ithm to quali tativ melissa detec t CRC and advan lacy preca ncer. It is FDA-a pprov ed and indic ated for use in adult s 45 years or older at avera ge risk for CRC. A posit candice (abno rmal) resul t shoul d be follo wed by a colon oscop y. Patie nts with a negat candice (norm al) resul t shoul d scree n again in 3 years . False posit candice and false negat candice resul ts may occur . The USPST F recom mends the Colog uard test as a CRC scree racquel optio n. Their model ing estim ates that scree racquel with the test every 3 years from ages 45-85 could preve nt up to 73% of CRC and avoid up to 85% of CRC s. A 18,91 1-pat ient clini kobi trial found the Colog uard Plus test effec tivel y detec ts CRC and preca ncer. The study found the test was 95% sensi tive for CRC, 43% sensi tive for advan lacy preca ncer, and had a 91% speci ficit y ([facility] Plus Clini moira Broch ure. Exact Scien chrissy Corpo ratio n. [place] Visit www.[facility] TagMii /abou t/acc uracy -sens itivi ty-sp [facility] for more test infor matchelsie n, refer eyal harris ngs, and preca ution s. Not Available [facility] [address], [place], [address], 03/14/2025 08:58:50 Result Notes None recorded. Problems Name Problem SNOMED Code Status Onset Date Resolution Date Notes Provider Name and Address Organization Details Recorded Time Essential hypertension 40926564 Active 2023 Amanda max [facility] 5 15:10:10 Parkinson's disease 14155584 Active 2023 Jie Guzman MD [address] [place] [address], [phone] , [facility] 5 16:02:47 Type 2 diabetes mellitus 21736331 Active 2023 Amanda max [facility] 5 15:10:44 Restless legs syndrome 48568176 Active 2023 Amanda max [facility], [facility] 5 15:10:50 Hypothyroidism 17895415 Active 2023 [facility] 15:10:32 Gastroesophage al reflux disease without esophagitis 441260870 Active 2024 Jie Guzman MD [address] [place] [address], [phone], [facility], [facility]isa 08:01:17 Hyperlipidemia 49380536 Active 2024 Jie Guzman MD [address] [place] [address], [phone], [facility], L.L.Anup 5 08:01:21 Viral upper respiratory tract infection 738998180 Active 2024 Jie Guzman MD [address] [place] [address], [phone], [facility], [facility]isa 12:29:47 Problem Notes None recorded. Procedures Surgical History Date Name Laterality Status Provider Name and Address Organization Details Recorded Time colonoscopy completed CHANDRAKANT ROBLES [address] [place] [address], [phone], [facility] 03/14/2025 16:07:10 Imaging Results None recorded. Procedure Notes None recorded. Medical Equipment None Reported. Medications Name Sig Start Date Stop Date Status Note LastModified by Organization Details LastModified Time metformin 500 mg tablet Take 1 tablet every day by oral route for 30 days. 12/26 completed Not Available Not Available Not Available doxycycline hyclate 100 mg capsule take 1 capsule BY MOUTH TWICE DAILY FOR THREE DAYS 06/25 completed Not Available Not Available Not Available ketoconazol e 2 % shampoo Apply topically to the scalp and face, three times a week. Lather, leave in place for 5 minutes, and then rinse off with water once daily. 12/26 completed Not Available Not Available Not Available triamcinolo ne acetonide 0.5 % topical cream APPLY TO THE AFFECTED AREA(S) TWICE DAILY FOR SEVEN DAYS 12/26 completed Not Available Not Available Not Available azithromyci n 250 mg tablet TAKE 2 TABLETS BY MOUTH ON DAY ONE, THEN TAKE 1 TABLET DAILY FOR FOUR DAYS 06/25 completed Not Available Not Available Not Available lisinopril 20 mg tablet Take 1 tablet by mouth daily. 2024 active Not Available Not Available Not Avai lable prednisone 20 mg tablet TAKE TWO TABLETS BY MOUTH EVERY DAY FOR FIVE DAYS 12/26 completed Not Available Not Available Not Available ropinirole 3 mg tablet Take 1 tablet twice a day by oral route. active Not Available Not Available No t Available carbidopa ER 50 mg-levodopa 200 mg tablet,exte nded release TAKE 2 TABLETS BY MOUTH TWICE DAILY 2 tabs at 8am and TWO tabs at noon active Not Available Not Available No t Available ciprofloxac in 500 mg tablet TAKE 1 TABLET BY MOUTH EVERY TWELVE HOURS 06/25 completed Not Available Not Available Not Available sulfamethox azole 800 mg-trimetho prim 160 mg tablet TAKE 1 TABLET BY MOUTH TWICE DAILY for 7 days 06/25 completed Not Available Not Available Not Available levothyroxi ne 25 mcg tablet Take 1 tablet by mouth daily. 2024 active Not Available Not Available Not Avai lable amlodipine 10 mg tablet Take 1 tablet every day by oral route. active Not Available Not Available No t Available benzonatate 100 mg capsule TAKE 1 CAPSULE BY MOUTH THREE TIMES DAILY NEEDED FOR COUGH 12/26 completed Not Available Not Available Not Available cephalexin 500 mg capsule take 1 capsule BY MOUTH TWICE DAILY 06/25 completed Not Available Not Available Not Available simvastatin 20 mg tablet Take 1 tablet by mouth at bedtime. active Not Available Not Available No t Available tacrolimus 0.1 % topical ointment apply TO flakey areas of face and ears TWICE DAILY active Not Available Not Available No t Available metformin 1,000 mg tablet Take 1 tablet by mouth twice daily. 2024 active Not Available Not Available Not Avai lable clotrimazol e-betametha sone 1 %-0.05 % topical cream apply TO SKIN TWICE DAILY FOR FOUR weeks 12/26 completed Not Available Not Available Not Available omeprazole 20 mg capsule,del ayed release Take 1 capsule by mouth daily. 2024 active Not Available Not Available Not Avai lable mupirocin 2 % topical ointment APPLY TO THE AFFECTED AREA(S) ON RIGHT EAR TWICE DAILY UNTIL HEALED. KEEP COVERED WITH NON STICK BANDAGE 12/26 completed Not Available Not Available Not Available carbidopa 25 mg-levodopa 100 mg tablet TAKE 1 TABLET BY MOUTH TWICE DAILY ONE tab at 10am and ONE tab at 2pm active Not Available Not Available No t Available ketoconazol e 2 % topical cream APPLY TO red scaly areas on face and ears twice daily as needed 12/26 completed Not Available Not Available Not Available doxycycline hyclate 100 mg tablet TAKE 1 TABLET BY MOUTH TWICE DAILY 12/26 completed Not Available Not Available Not Available Asprin Ec Low Dose 81 mg tablet,caridad yed release Take 1 tablet every day by oral route. active Not Available Not Available No t Available Farxiga 10 mg tablet Take 1 tablet by mouth daily. 2024 active Not Available Not Available Not Avai lable OneTouch UltraSoft 2 Lancet 30 gauge USE DIRECTED TO test THREE TIMES DAILY active Not Available Not Available No t Available Vitals Date Recorded Oxygen saturation Oxygen saturation in Arterial blood by Pulse oximetry Heart rate Respiratory rate Body temperature Systolic And Diastolic Provider Name and Address Organization Details Last Updated DateTime 5 93 % 93 % 68 /min 18 /min 97.8 [degF] 112/58 mm[Hg] Jie Guzman MD [address] [place] [address], [phone] [place] [address], L.L.C. 5 07:59:34 Date Recorded Oxygen saturation Oxygen saturation in Arterial blood by Pulse oximetry Heart rate Respiratory rate Body temperature Systolic And Diastolic Provider Name and Address Organization Details Last Updated DateTime 5 92 % 92 % 84 /min 20 /min 98 [degF] 106/64 mm[Hg] Jie Guzman MD [address] [place] [address], [phone] [place] [address], L.L.C. 5 12:28:30 Date Recorded Body weight Oxygen saturation Oxygen saturation in Arterial blood by Pulse oximetry Heart rate Respiratory rate Body temperature Systolic And Diastolic Provider Name and Address Organization Details Last Updated DateTime 5 99903.6 3 g 94 % 94 % 74 /min 18 /min 98 [degF] 118/60 mm[Hg] Jie Guzman MD [address] [place], [phone], [facility] 5 14:06:20 Date Recorded Oxygen saturation Oxygen saturation in Arterial blood by Pulse oximetry Heart rate Respiratory rate Body temperature Systolic And Diastolic Provider Name and Address Organization Details Last Updated DateTime 4 94 % 94 % 81 /min 20 /min 98.4 [degF] 110/66 mm[Hg] iJe Guzman MD [address] [place], [phone], [facility] 4 12:16:47 Social History None recorded. Functional Status None recorded. Mental Status None recorded. Family History Nothing Reported. Medical History No medical history recorded. Immunizations Vaccine Type Date Status Note Provider Nam e and Address Organization Details Recorded Time Influenza, high-dose, trivalent, PF 9 completed Not Available [facility] 06/28/2025 10:14:27 Influenza, high-dose, trivalent, PF 0 completed Not Available [facility] 06/28/2025 10:14:27 COVID-19, mRNA, LNP-S, PF, 30 mcg/0.3 mL dose 1 completed Not Available [facility] 06/28/2025 10:14:27 COVID-19, mRNA, LNP-S, PF, 30 mcg/0.3 mL dose 1 completed Not Available [facility] 06/28/2025 10:14:27 zoster recombinant 1 completed [facility] Available [facility] 06/28/2025 10:14:27 zoster recombinant 1 completed Not Available [facility] 06/28/2025 10:14:27 Influenza, high-dose, trivalent, PF 1 completed Not Available [facility] 06/28/2025 10:14:27 COVID-19, mRNA, LNP-S, PF, 30 mcg/0.3 mL dose 1 completed Not Available [facility] 06/28/2025 10:14:27 Influenza, adjuvanted, quadrivalent, PF 3 completed Not Available [facility] 06/28/2025 10:14:27 COVID-19, mRNA, LNP-S, PF, juvenal-sucrose, 30 mcg/0.3 mL 3 completed Not Available [facility] 06/28/2025 10:14:27 Past Encounters Encounter ID Performer Location Encounter Start Date Encounter Closed Date Diagnosis/Indication Diagnosis SNOMED-CT Code Diagnosis ICD10 Code Diagnosis IMO Codes Diagnosis Note [id number] Jie Guzman MD [facility] [address] [place] [phone] 06/22/2024 13:23:41 06/22/2024 17:27:50 Essential hypertension 42052573 I10 Blood pressure is well managed on current medication s. Parkinson's disease 4904 9000 G20.A1 Patient regularly sees her neurologis t. The patient is tolerating carbidopa levodopa without any concerns. Feels that his symptoms are managed fairly well. Type 2 elias betes mellitus 61662681 E11.9 His blood sugar seems to be doing well on current medication s. Has been tolerating his statin. Restless l egs syndrome 29364156 G25.81 Symptoms managed with ropinirole . Hypothyroidism 40305884 E03.9 Continue levothyrox ine. [id number] Jie Guzman MD [facility] ([facility]) [address] [place] [phone] 11/23/2024 17:07:39 12/02/2024 06:05:59 Type 2 diabetes mellitus 76521539 E11.9 Discussed diabetic diet. We will increase his metformin to 1000 mg twice daily. Recheck A1c in 3 months. Gastroesop hageal reflux disease without esophagitis 510110862 K21.9 Doing well on omeprazole . Hyperlipidemia 27986783 E78.5 Tolerating statin Essential hypertension 51516397 I10 Blood pressure is well managed on current medication s. Hypothyroidism 90232448 E03.9 Continue levothyrox ine. Parkinson's disease 4904 9000 G20.A1 Patient regularly sees his neurologis t. The patient is tolerating carbidopa levodopa without any concerns. Feels that his symptoms are managed fairly well. Restless l egs syndrome 36174453 G25.81 Symptoms managed with ropinirole . [id number] Jie Guzman MD [facility] ([facility]) [address] [place] [phone] 03/08/2025 13:34:01 03/12/2025 15:36:07 Viral upper respiratory tract infection 783404581 J06.9 [id number] Patient presented with symptoms of viral upper respirator y infection. Advised to drink plenty of fluids, run a cool-mist humidifier in room at night, gargle salt water for sore throat, and get plenty of rest. Patient should avoid over-exert ion and reduce exposure to irritants such as smoke, cold, dry air, and dust. Treatment currently involves symptomati c relief. Patient may take acetaminop hen or ibuprofen as directed to reduce fever and body aches. Antihistam ine and decongesta nt usage was discussed and recommenda tions made. Patient understood these instructio ns and will follow up in the office in 7-10 days if symptoms not improving. [id number] Jie Guzman MD [facility] ([facility]) [address] [place] [phone] 04/26/2025 08:48:46 05/03/2025 08:50:34 Type 2 diabetes mellitus 51543748 E11.9 A1c today. Hypothyroidism 62613463 E03.9 Continue levothyrox ine. Essential hypertension 45956901 I10 Blood pressure is well managed on current medication s. Parkinson's disease 4904 9000 G20.A1 Patient regularly sees his neurologis t. The patient is tolerating carbidopa levodopa without any concerns. Feels that his symptoms are managed fairly well. However, there is some concerns that the patient may be developing Parkinson' s related dementia. Urged the patient and his to discuss with neurologis t. The patientg has been having gait instabilty and ambulating difficulty and would benefit from PT. Eval and treat order will be sent to home health. The patient is currently in assisted living and home bound. Health Concerns Section Related Observation LastModified by Organization Detai ls LastModified Time None Recorded Concern Status LastModified by Organization Details LastModified Time None Recorded Advance Directives Directive None Recorded Payers Insurance Date Sequence Insurance Name Policy Number Policy Shannon Covered Member ID Shannon Member ID Guarantor Name 06/28/2025 1 [place] Damir Fam [id number] Damir Fam 06/28/2025 2 [facility] SELECT - DOS PRIOR TO 2024 (PPO) Damir Fam [id number] SMITH Damir Fam 06/28/2025 [place] A - [id number] (MEDICARE) Damir Fam [id number] Damir Fam 06/28/2025 2 [facility] - [facility] [employer] - DOS 09/12/2024 AND AFTER Damir Fam [id number] Damir Fam Notes Date Note Type Note Provider Name and Address Organization Details Recorded Time 06/22/2024 text/html This is a 74-year-old gentleman that was seen at a his assisted living apartment at [place]. Patient was seen to establish care and for general checkup. Patient denies any specific concerns today. Feels like his blood sugars are doing well on current medications. Patient states that he had labs drawn approximately 1 month ago and there were no concerns. His A1c was less than 7. Patient is tolerating his medications without any issues. Patient states that his chronic medical issues are stable. Jie Guzman MD [address] [place] [address], [phone], [facility] 06/25/2024 17:33:31 11/23/2024 text/html This is a 74-year-old gentleman that was seen at his apartment at [facility]. This is for a general checkup. Patient did not have any specific concerns today. Patient had lab work done recently and his A1c was elevated at 8.5. Patient has noted that his blood sugars have been elevated. Patient has a history of Parkinson's and sees his neurologist yearly. The patient has been having issues with gait and fine motor movements and is requesting PT/OT. Patient's blood pressure has been doing well on current medications. Jie Guzman MD [address] [place] [address], [phone], [facility] 12/01/2024 08:04:46 03/08/2025 text/html This is a 74-year-old gentleman that was seen at his apartment in assisted living. The patient started having upper respiratory symptoms approximately 2 days ago. The patient's has been sick with similar symptoms over the last week. Patient's is starting to improve. No other concerns today. Jie Guzman MD [address] [place] [address], [phone], [facility] 03/10/2025 12:30:03 04/26/2025 text/html This is a 74-year-old gentleman that was seen at his apartment in assisted living for general checkup. the patient is home bound. The patient denies any significant concerns. Patient's does express concerns about her decline in his overall health. Patient is not as active as he once was. does express concerns about his memory. Overall, the patient appears to be doing well on his medication. Blood sugars have been doing fairly well. Jie Guzman MD [address] [place] [address], [phone], [facility] 06/29/2025 09:19:11
--- NOTE | 2025-07-17 23:19 | CTR_ITS ---
PROCEDURE INFORMATION: Exam: CT Abdomen And Pelvis With Contrast Exam date and time: 07/18/2025 3:02 AM Age: 75 years old Clinical indication: Abdominal pain; Flank; Left; Additional info: L flank pain, no bm for couple weeks TECHNIQUE: Imaging protocol: Computed tomography of the abdomen and pelvis with contrast. Radiation optimization: All CT scans at this facility use at least one of these dose optimization techniques: automated exposure control; mA and/or kV adjustment per patient size (includes targeted exams where dose is matched to clinical indication); or iterative reconstruction. Contrast material: OMNI 350; Contrast volume: 100 ml; Contrast route: INTRAVENOUS (IV); COMPARISON: No relevant prior studies available. RADIATION DOSE METRICS: Total DLP (mGy-cm): 456.53 FINDINGS: Lungs: Atelectasis at the left lung base. Trace left pleural effusion. Liver: Normal. No mass. Gallbladder and biliary ducts: Normal. No calcified stones. No ductal dilation. Pancreas: Normal. No ductal dilation. Spleen: Normal. No splenomegaly. Adrenal glands: Normal. No mass. Kidneys and ureters: Left renal cyst measures 5.8 x 5.2 cm. Stomach and bowel: Large volume fecal retention, correlate for constipation. Appendix: No evidence of appendicitis. Intraperitoneal space: Unremarkable. No free air. No significant fluid collection. Vasculature: Atherosclerotic changes of the aorta. Lymph nodes: Unremarkable. No enlarged lymph nodes. Urinary bladder: Unremarkable as visualized. Reproductive: Unremarkable as visualized. Bones/joints: Degenerative changes of the spine. Soft tissues: Unremarkable. CT/CT abdomen pelvis w con* [id number] IMPRESSION: 1. Atelectasis at the left lung base. Trace left pleural effusion. 2. Large volume fecal retention, correlate for constipation. COMMENTS: Consistent with the [employer]'s Incidental Findings Committee white paper (J Am Pablito Radiol 2018): Any incidental renal lesion less than 1 cm or classified as too small to characterize, or any incidental cystic renal lesion characterized as simple-appearing, is likely benign. No follow-up imaging is recommended for these lesions per consensus recommendations based on imaging criteria.
[2025-07-17 23:20] LABS: Glucose Urine UA 2+ (Normal); Nitrate Urine Negative (Negative)
[2025-07-17 23:25] LABS: Add Urine Microscopic? YES
[2025-07-17 23:28] VITALS: BP 149/86; PULSE 96; O2SAT 94
[2025-07-17 23:28] LABS: Specific Gravity, Urine 1.046 (1.005-1.030)
[2025-07-17 23:58] VITALS: BP 135/81; PULSE 82; O2SAT 94
[2025-07-18] VITALS (8 sets, daily range): BP systolic 133–146; BP diastolic 75–101; PULSE 72–85; O2SAT 91–98
[2025-07-18 01:56] LABS: Hematocrit 37.9 % (37-53); Hemoglobin 12.80 g/dL (11.27-16.99); Mean Corpuscular HGB Conc 33.8 g/dL (30-55); Mean Corpuscular Hemoglobin 31.7 pg (27-33); Mean Corpuscular Volume 93.8 fl (82-101); Nucleated Red Blood Cells % 0 %; Platelet Count 148 10^3/cmm (157-399); Red Blood Count 4.04 10^6/uL (3.85-5.65); White Blood Count 9.55 10^3/uL (3.29-11.43)
[2025-07-18 02:16] LABS: Alanine Aminotransferase < 5 U/L (0-41); Albumin Level 4.0 g/dL (3.5-5.2); Alkaline Phosphatase 67 U/L (40-130); Anion Gap 16.2 (5-19); Aspartate Amino Transferase 7 U/L (0-40); Blood Urea Nitrogen 10 mg/dL (8-23); Calcium 9.5 mg/dL (8.5-10.5); Carbon Dioxide 27 mmol/L (22-29); Chloride 99 mmol/L (98-107); Creatinine Clr Calc Pharmacy 78.3769; Globulin 3.3 g/dL (1.3-4.6); Glucose 148 mg/dL (65-115); Lipase 14 U/L (13-60); Osmolality Calculated 290 mOsm/kg (285-295); Potassium 3.2 mmol/L (3.5-5.1); Sodium 139 mmol/L (136-145); Total Protein 7.3 g/dL (6.6-8.7)
[2025-07-18] MEDS: iohexol 350 mg/mL 500 mL Btl (per mL) IV (03:16)
== END 2025-07-18 05:10 | disposition home or self-care (01) ==
PROVIDERS: Emergency Provider Emergency Medicine; PCP Family Medicine
DX: R10.A2 Flank pain, left side (principal); K59.00 Constipation, unspecified; E87.6 Hypokalemia; Z79.82 Long term (current) use of aspirin; E11.9 Type 2 diabetes mellitus without complications; I10 Essential (primary) hypertension
CPT/HCPCS: 36415; 74177; 80053; 81001; 83690; 85025; 99285; J9999

== ENCOUNTER 2025-07-19 08:17 | Emergency (ER) | payer MEDICARE, OTHER, SELFPAY ==
[2025-07-19 08:18] VITALS: BP 137/78; PULSE 93; RESP 16; TEMP 36.8; O2SAT 95; BMI 23.6
--- NOTE | 2025-07-19 08:27 | W.ED.BACK ---
HPI - Back Pain/Injury General: Chief Complaint: Back Pain/Injury Stated Complaint: back pain History of Present Illness: 79-year-old male history hypertension hyperlipidemia diabetes Parkinson's/dementia, skilled nursing resident, presenting to emergency department with low back pain x 1 to 2 days, seen 2 days ago in the context of flank pain and constipation x 2 weeks, workup was generally unremarkable CT scan showing constipation without impaction and patient was sent home with recommendation for a bowel regimen which she reportedly never started. Sent here for evaluation by skilled nursing staff. Patient reports isolated back pain, reports he has not had a bowel movement in 2 weeks, denies vomiting, denies fever. reported concern from skilled nursing staff of facial droop/slurred speech but not evident on ems evaluation. Related Data Home Medications ?Medication ?Instructions ?Recorded ?Confirmed aspirin 81 mg tablet,delayed 81 mg PO DAILY 11/18/22 07/11/25 release (Adult Aspirin Regimen) amlodipine 10 mg tablet 10 mg PO DAILY 10/20/24 07/11/25 carbidopa ER 50 mg-levodopa 200 mg 2 tab PO BID 10/20/24 07/11/25 tablet,extended release dapagliflozin propanediol 10 mg 10 mg PO DAILY 10/20/24 07/11/25 tablet (Farxiga) lisinopril 20 mg tablet 20 mg PO DAILY 10/20/24 07/11/25 simvastatin 20 mg tablet 20 mg PO QPM 10/20/24 07/11/25 metformin 500 mg tablet 1,000 mg PO BID 12/19/24 07/11/25 Previous Rx's ?Medication ?Instructions ?Recorded diabetic supplies, miscellan. #100 ea 09/11/22 levothyroxine 25 mcg tablet 25 mcg PO DAILY #90 tabs 11/14/23 omeprazole 20 mg capsule,delayed 20 mg PO DAILY #90 caps 02/02/24 release benzonatate 100 mg capsule 100 mg PO TID PRN cough #20 caps 10/28/24 doxycycline hyclate 100 mg tablet 100 mg PO BID #14 tabs 10/28/24 carbidopa 25 mg-levodopa 100 mg 1 tab PO BID #28 tabs 12/14/24 tablet carbidopa ER 50 mg-levodopa 200 mg 2 tab PO BID #56 tabs 12/14/24 tablet,extended release ropinirole 3 mg tablet 3 mg PO BID #180 tabs 01/23/25 bisacodyl 10 mg rectal suppository 10 mg AK DAILY PRN constipation 07/18/25 #12 ea glycerin (adult) (Fleet Glycerin 1 supp AK DAILY PRN constipation 07/19/25 (Adult) rectal suppository) #12 ea polyethylene glycol 3350 17 gram 17 g PO DAILY PRN constipation 14 07/19/25 oral powder packet (Miralax) days #14 ea sodium phosphates 19 gram-7 118 ml AK DAILY 2 days #266 mL 07/19/25 gram/118 mL enema (Fleet Enema) Allergies Allergy/AdvReac Type Severity Reaction Status Date / Time chocolate Allergy Unknown Verified 07/11/25 07:21 PFSH ED PFSH: Medical History Cellulitis of lower extremity Hypothyroid Type 2 diabetes mellitus without complications Essential hypertension Parkinsons disease Social History Smoking and tobacco/nicotine status: never used tobacco/nicotine Alcohol intake: never Substance/Drug Use: never Physical Exam Narrative: EXAM NARRATIVE: Gen: A&Ox3, no acute distress, nontoxic appearing HEENT: Normocephalic, atraumatic, no scleral icterus, external ears normal, moist mucous membranes Neck: Supple, full range of motion, no observable masses Lungs: No Respiratory distress, Lungs clear to auscultation bilaterally no rales, rhonchi, wheezing CV: Regular rate and rhythm, no murmur, no pitting edema to lower extremities bilaterally Abdomen: Soft, nondistended, nontender to palpation MSK: No joint swelling, FROM all 4 extremities Skin: No rashes, petechiae, lesions. Normal color per patient. Neuro: Alert and oriented, no slurred speech, sensation and strength grossly intact all 4 extremities, no facial droop, no slurred speech, no dysmetria on upper extremity [id number] testing, no pronator drift, strength equal and symmetric all 4 extremities, sensation intact all 4 extremities, no gaze deviation, no hemineglect, naming and repetition intact, NIHSS of 0 Psych: Appropriate for situation. Course Reevaluation(s): Reevaluation #1: I reassessed the patient, he clinically appears stable, 2 family members are now at the bedside to provide collateral information, apparently the nursing staff at the assisted living facility do not administer medications which seems unusual, they are in the process of discussing this with the supervisors there and also have a PCP appointment for today for him to be seen by his doctor. I did discuss multiple management options including magnesium citrate at home versus trial of enema in the emergency department, after discussion they prefer to try the magnesium citrate at home and patient prefers to avoid enema in the ER for now. I did discuss with them that they are welcome to return to the ER if he is developing worsening pain or vomiting or generalized worsening of his status to be reevaluated and to consider RN assisted bowel regimen such as enemas in the ER. Patient and family numbers at the bedside currently comfortable with plan of care and will follow-up with PCP today Time: 09:23 Vital Signs: Vital signs: Vital Signs Temperature 98.2 F 07/19/25 08:18 Pulse Rate 93 07/19/25 08:18 Respiratory Rate 16 07/19/25 08:18 Blood Pressure 137/78 07/19/25 08:18 Pulse Oximetry 95 07/19/25 08:18 Oxygen Delivery Me thod Room Air 07/19/25 08:18 MDM - Back Pain/Injury Medical Decision Making 75-year-old male history of hypertension diabetes Parkinson's and dementia from skilled nursing presenting with constipation and back pain, constipation x 2 weeks evaluated previously 2 days ago with full workup including imaging labs, at that time showing constipation without fecal impaction in the rectum, recommended for bowel regimen which was not started for unclear reasons, patient now here with similar symptoms. There was a concern from skilled nursing staff for possible neurologic deficits however on examination by EMS as well as by myself I do not see any focal neurologic deficits, no slurred speech no facial droop NIH stroke scale of 0, plan for dose of magnesium citrate in the ER, anticipate discharge with recommendation to the skilled nursing to start the recommended bowel regimen as previously recommended. no evidence of emergency medical condition on my evaluation, ct 2 days ago no impaction to rectum no indication for manual disimpaction. No radiology studies performed this visit Discharge Plan Discharge Patient Disposition: Home Clinical Impression: Constipation Qualifiers: Constipation type: unspecified constipation type Qualified Code(s): K59.00 - Constipation, unspecified Condition: Stable Prescriptions: New Fleet Enema 19-7 gram/118 mL enema 118 ml AK DAILY 2 Days Qty: 266 0RF polyethylene glycol 3350 [Miralax] 17 gram powder in packet 17 g PO DAILY PRN (Reason: constipation) 14 Days Qty: 14 0RF glycerin (adult) [Fleet Glycerin (Adult)] Suppository 1 supp AK DAILY PRN (Reason: constipation) Qty: 12 0RF No Action aspirin [Adult Aspirin Regimen] 81 mg tablet,delayed release (DR/EC) 81 mg PO DAILY doxycycline hyclate 100 mg tablet 100 mg PO BID Qty: 14 0RF benzonatate 100 mg capsule 100 mg PO TID PRN (Reason: cough) Qty: 20 0RF metformin 500 mg tablet 1,000 mg PO BID (DME) diabetic supplies, miscellan. Misc See Rx Instructions .ROUTE .MEDSUPPLY Qty: 100 12RF Rx Instructions: Please issue diabetic testing supplies:test strips lancets, etc. levothyroxine 25 mcg tablet 25 mcg PO DAILY Qty: 90 3RF omeprazole 20 mg capsule,delayed release(DR/EC) 20 mg PO DAILY Qty: 90 3RF carbidopa-levodopa 25-100 mg tablet 1 tab PO BID Qty: 28 0RF Rx Instructions: 1 tab at 10 AM and 1 tab at 2 PM carbidopa-levodopa 50-200 mg tablet extended release 2 tab PO BID Qty: 56 0RF Rx Instructions: Take 2 at 8 am and 2 at noon ropinirole 3 mg tablet 3 mg PO BID Qty: 180 3RF Rx Instructions: Take one tablet at 8am and 1 tablet at 8pm lisinopril 20 mg tablet 20 mg PO DAILY Rx Instructions: TAKE 1 TABLET BY MOUTH EVERY DAY carbidopa-levodopa 50-200 mg tablet extended release 2 tab PO BID Rx Instructions: 2 tabs at 8 am and 2 tabs at noon amlodipine 10 mg tablet 10 mg PO DAILY Rx Instructions: Take 1 tablet by mouth daily. simvastatin 20 mg tablet 20 mg PO QPM Rx Instructions: Take 1 tablet by mouth at bedtime. dapagliflozin propanediol [Farxiga] 10 mg tablet 10 mg PO DAILY Rx Instructions: TAKE 1 TABLET BY MOUTH EVERY DAY bisacodyl 10 mg suppository 10 mg AK DAILY PRN (Reason: constipation) Qty: 12 0RF Discharge Orders: Discharge ED (Routine); Ordered 07/19/25 Ordered By: Jignesh House Referrals: Diego Lam DO [Primary Care Provider, Family Practice] Patient Instructions: Constipation (DC), Patient Portal & Sylvia Instructions Activity Restrictions/Additional Instructions: Patient was seen for constipation and back pain, please start the bowel regimen as recommended with daily Fleet enemas, MiraLAX daily, as needed glycerin suppositories as needed until patient has 2-3 bowel movements per day until symptoms resolve, return to the ER for worsening symptoms Print Language: Tajik Coding Level of Care Code ED Stockroom Inventory Clerk for Alhaji Rodríguez
--- OUTSIDE RECORDS SUMMARY | 2025-07-19 08:41 | XMS_ITS | Patient Health Record ---
Author Organization [facility] al [facility] Address [address] [place] [address] Care Team Providers Care Warp Doffer Name Role Phone Aaa, Provider Primary Care Provider Hema Hester [phone] Allergies No Known Allergies Reason For Referral [...] times daily as needed. 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 10/22/2016 Active OneTouch Verio w/Device as [...] yrs and up IM Intramuscular 06/08/2013 Administered eVenues COVID-19 30mcg/0.3ml (Old) IM Intramuscular 10/04/2020 Administered [...] Status W/U Status Risk Notes Problem Dysphagia (38815756) PHARYNGOESOPHAG EAL DYSPHAGIA (R13.14) Active confirmed Problem Macrocytosis - no anemia (102101511) MACROCYTOSIS WITHOUT ANEMIA (D75.89) Active confirmed Problem Dysphagia (15590475) DYSPHAGIA (R13.10) Active confirmed Problem Hypoglycemia (232574448) HYPOGLYCEMIA (E16.2) Active confirmed Problem Hyperlipidaemia (45136388) HYPERLIPIDEMIA, UNSPECIFIED HYPERLIPIDEMIA TYPE (E78.5) Active confirmed Problem TYPE 2 DIABETES MELLITUS WITH HYPERLIPIDEMIA (E11.69) Active confirmed Problem Parkinsons disease (10279716) PARKINSONS DISEASE (G20) Active confirmed Problem Metabolic syndrome (605319029) Metabolic syndrome (E88.81) Active confirmed Comment:we are monitoring components of this syndrome weight blood pressure glucose triglycerides HDL cholesterol,St ory:we are monitoring components of this syndrome weight blood pressure glucose triglycerides HDL cholesterol, Problem Essential hypertension (28232367) Essential (primary) hypertension (I10) Active confirmed Problem Amanda's esophagus (245064004) 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) Active confirmed Problem Type II diabetes mellitus without complication (530516109) Type 2 diabetes mellitus without complication, unspecified whether superintendent [employer] insulin use (E11.9) Active confirmed Problem Hyperlipidemia (02382065) HYPERLIPIDEMIA LDL GOAL <130 (E78.5) Active confirmed Problem Hypertension (02549318) HYPERTENSION (I10) Active confirmed Problem Chronic obstructive pulmonary disease (54726285) COPD, MODERATE (J44.9) Active confirmed Problem hypercholesterolem ia (disorder) (71477377) HYPERCHOLESTERE AZUL (E78.00) Active confirmed Problem H/O PARKINSON'S DISEASE (Z86.69) Active confirmed Problem Benign essential hypertension (1941228) HYPERTENSION, ESSENTIAL, BENIGN (I10) Active confirmed Problem History of malignant neoplasm of skin (232787312) HISTORY OF SKIN CANCER (Z85.828) Active confirmed 2009 BCC L cheek, 2016 BCC L christianity, 2018 milagros R christianity, 2019 BCC L nose, 2019 BCC L neck, 2019 BCC R neck Problem Colon cancer screening (406635571) COLON CANCER SCREENING (Z12.11) Active confirmed Comment:he has had 2 colonoscopies 1999 2009 2 hyperplastic polyps in 2009 10 year follow up advised Hema Meza MD 09/19/2015, Problem Tinea corporis (26673590) Tinea corporis (B35.4) Inactive confirmed Description:TI KRISTOPHER CORPORIS Problem Basal cell carcinoma of face (794242140) Basal cell carcinoma of skin of other parts of face (C44.319) Inactive confirmed Problem Hypokalemia (67246942) Hypokalemia (E87.6) Inactive confirmed Comment:hctz was discontinued repeat lab, Problem Impacted cerumen (68254270) Impacted cerumen, right ear (H61.21) Inactive confirmed Problem Constipation (96523311) Other constipation (K59.09) Inactive confirmed Comment:x-ray showed very large amount of stool within the colon, Problem Psoriasis vulgaris (045369112) Psoriasis vulgaris (L40.0) Inactive confirmed Problem Skin changes due to chronic exposure to non-ionizing radiation (314531622) Other skin changes due to chronic exposure to nonionizing radiation (L57.8) Inactive confirmed Description:DE RMATOHELIOSIS Problem Sebaceous cyst (460920535) Sebaceous cyst (L72.3) Inactive confirmed Problem Right upper quadrant pain (373243296) Right upper quadrant pain (R10.11) Inactive confirmed Description:AB DOMINAL PAIN, RIGHT UPPER QUADRANT Problem Removal of suture (76601942) Encounter for removal of sutures (Z48.02) Inactive confirmed Description: SIT FOR SUTURE REMOVAL Problem Essential hypertension (87827897) Essential hypertension (I10) Inactive confirmed Problem Counseling (127461898) ENCOUNTER FOR EDUCATION (Z71.9) Inactive confirmed Problem General examination of patient (069776695) ROUTINE MEDICAL EXAM (Z00.00) Inactive confirmed Comment:Usual age appropriate precautions and guidance given. return to clinic 3 months 30 mintue visit, Problem Body mass index 25-29 - overweight (604617732) ADULT BODY MASS INDEX 28.0-28.9 (Z68.28) Inactive confirmed Description:DEIDRA DY MASS INDEX (BMI) OF 28.0-28.9 IN ADULT Problem Seborrheic dermatitis (26727062) DERMATITIS, SEBORRHEIC (L21.9) Inactive confirmed Problem ASPIRATION PNEUMONIA OF BOTH UPPER LOBES, UNSPECIFIED ASPIRATION PNEUMONIA TYPE (J69.0) Inactive confirmed Problem Body mass index 25-29 - overweight (236069489) BODY MASS INDEX (BMI) OF 27.0-27.9 IN ADULT (Z68.27) Inactive confirmed Problem DM - Diabetes mellitus (59066457) DM (DIABETES MELLITUS) (E11.9) Inactive confirmed Problem Depression screening (636842872) SCREENING FOR DEPRESSION (Z13.31) Inactive confirmed Description:DE PRESSION SCREEN (V79.0 Z13.89) Problem Lichen simplex chronicus (disorder) (57368783) NEURODERMATITIS (L28.0) Inactive confirmed Problem Screening for malignant neoplasm of prostate (796759393) SCREENING FOR MALIGNANT NEOPLASM, PROSTATE (V76.44) (Z12.5) Inactive confirmed Comment:psa within normal limits continue current medication,Sto ry:PSA 0.4 PSA 0.5 , Problem History of malignant neoplasm of skin (situation) (107244026) PERSONAL HISTORY OF SKIN CANCER (Z85.828) Inactive confirmed Problem Amanda's esophagus (747726445) AMANDA'S ESOPHAGUS WITH DYSPLASIA (K22.719) Inactive confirmed Problem Adult health examination (754008958) ENCOUNTER FOR HEALTH MAINTENANCE EXAMINATION (Z00.00) Inactive confirmed Description:HE ALTH MAINTENANCE EXAMINATION (Z00.00) Problem Overweight (338862695) BODY MASS INDEX (BMI) OF 25.0 TO 29.9 (278.02) Inactive confirmed Description:OV ERWEIGHT (BMI 25.0-29.9) Problem Type II diabetes mellitus uncontrolled (436689643) DIABETES MELLITUS TYPE 2, UNCONTROLLED, WITHOUT COMPLICATIONS (250.02) Inactive confirmed Problem Type II diabetes mellitus without complication (543001154) TYPE II DIABETES MELLITUS, WELL CONTROLLED (E11.9) Inactive confirmed Comment:contin ue current medication monitor lab continue yearly eye exam, Problem DIARRHEA, INFECTIOUS, ADULT (A09) Inactive confirmed Problem YEAST INFECTION OF THE SKIN (B37.2) Inactive confirmed Problem Dietary management surveillance (079748156) ENCOUNTER FOR DIETARY COUNSELING AND SURVEILLANCE (Z71.3) Inactive confirmed Comment:Discus sed with patient the importance of weight loss, and achieving a healthy weight. Reviewed ways to set realistic goals, manage portion sizes, decrease caloric intake, increase physical activity and encouraged them to monitor their weight on a regular basis.,Descrip tion:DIETARY COUNSELING Problem Requires vaccination (574469861) ENCOUNTER FOR ZOSTAVAX ADMINISTRATION (Z23) Inactive confirmed Description:ND OPHYLACTIC VACCINATION AGAINST OTHER VIRAL DISEASES (V04.89) Problem ASPIRATION, CHRONIC PULMONARY, SUBSEQUENT ENCOUNTER (T17.908D) Inactive confirmed Problem Pneumonia (576556954) PNEUMONIA (J18.9) Inactive confirmed Problem BASAL CELL CARCINOMA OF SCALP OR SKIN OF NECK (C44.41) Inactive confirmed Problem Fungal dermatitis (41477929) FUNGAL DERMATITIS (B36.9) Inactive confirmed Problem Osteoarthritis of hip (018084004) DJD (DEGENERATIVE JOINT DISEASE) OF HIP (M16.9) Inactive confirmed Comment:take aleve as needed. Avoid high impact exercise but walking is good. Wear well padded shoes. Let me know if the pain increases and I will send you for an injection.,Talha cription:DJD (DEGENERATIVE JOINT DISEASE) OF HIP Problem Diabetic retinal eye exam (procedure) (056224449) DIABETIC EYE EXAM (Z01.00) Inactive confirmed Comment:he gets these yearly with Dr. Osorio usually in the summer,Story:aranza welsh gets these yearly with Dr. Osorio usually in the summer, Problem Flu vaccine needed (2319092081114) FLU VACCINE NEED (Z23) Inactive confirmed Description:ND OPHYLACTIC VACCINATION AGAINST INFLUENZA Problem Gastroesophageal reflux disease (577540625) GERD (GASTROESOPHAGE AL REFLUX DISEASE) (K21.9) Inactive confirmed Problem Pneumococcal conjugate vaccination (089662692714633) NEED FOR PROPHYLACTIC VACCINATION AGAINST STREPTOCOCCUS PNEUMONIAE (PNEUMOCOCCUS) (Z23) Inactive confirmed Description:ND OPHYLACTIC VACCINATION AGAINST STREPTOCOCCUS PNEUMONIAE (V03.82) Problem Removal of suture (61908756) VISIT FOR SUTURE REMOVAL (Z48.02) Inactive confirmed Problem Malignant neoplastic disease (disorder) (291159334) NEOPLASM OF BONE, SOFT TISSUE, AND SKIN (D49.2) Inactive confirmed Description:NE OPLASM OF UNSPECIFIED BEHAVIOR OF BONE, SOFT TISSUE, AND SKIN Problem Elevated blood-pressure reading without diagnosis of hypertension (259097132) ELEVATED BLOOD PRESSURE READING (R03.0) Inactive confirmed Problem Pulmonary aspiration (74480465) PULMONARY ASPIRATION (T17.900A) Inactive confirmed Problem Immunization education (437809061) IMMUNIZATION COUNSELING (Z71.89) Inactive confirmed Comment:discus sed new shingles vaccine shingrix, Problem RECENT SKIN CHANGES (R23.9) Inactive confirmed Comment:lesion on left side of nose irritation of left side of scrotum he will see dermatology later today, Problem Gastroesophageal reflux disease (427927878) GASTROESOPHAGEA L REFLUX DISEASE, ESOPHAGITIS PRESENCE NOT SPECIFIED (K21.9) Inactive confirmed Problem Parkinson's disease (04913188) PARALYSIS AGITANS (332.0) (332.0) Inactive confirmed Story:Dr. Casas,Desc ription:LICHA SON'S (332.0) Problem Gastroesophageal reflux disease (disorder) (485055208) CHRONIC GERD (K21.9) Inactive confirmed Problem Uncontrolled type 2 diabetes mellitus (339595069) UNCONTROLLED TYPE 2 DIABETES MELLITUS (E11.65) Inactive confirmed Description:DI ABETES MELLITUS TYPE 2, UNCONTROLLED Problem Pure hyperglyceridemia (851648778) HYPERGLYCERIDEM IA (E78.1) Inactive confirmed Comment:i bishnu current treatment., Problem Ventral hernia (443464379) VENTRAL HERNIA (K43.9) Inactive confirmed Problem Current non smoker but past smoking history unknown (finding) (044251608) CURRENT NON-SMOKER (Z78.9) Inactive confirmed Description:CU RRENT NON-TOBACCO USE Problem Influenza immunization (22074120) NEED FOR PROPHYLACTIC VACCINATION AND INOCULATION AGAINST INFLUENZA (Z23) Inactive confirmed Description: ND OPHYLACTIC VACCINATION AGAINST INFLUENZA (V04.81) Problem Impacted cerumen (12844998) EXCESSIVE CERUMEN IN BOTH EAR CANALS (H61.23) Inactive confirmed Problem Requires vaccination (716324262) NEED FOR IMMUNIZATION AGAINST INFLUENZA (Z23) Inactive confirmed Description: ND OPHYLACTIC VACCINATION AGAINST INFLUENZA Problem Ex-tobacco user (finding) (633177679) HISTORY OF TOBACCO USE (Z87.891) Inactive confirmed Problem 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) Inactive confirmed Problem Pain in left foot (340210444339783) LEFT FOOT PAIN (M79.672) Inactive confirmed Problem Pulmonary infiltrate (474168995) PULMONARY INFILTRATE (R91.8) Inactive confirmed Problem Multiple actinic keratoses (disorder) (929566820) ACTINIC KERATOSES (L57.0) Inactive confirmed Description:AC TINIC KERATOSIS Problem Dysphagia (52105025) SWALLOWING PROBLEM (R13.10) Inactive confirmed Problem Epidermoid cyst of skin (520891679) EPIDERMOID CYST OF SKIN (L72.0) Inactive confirmed Description: EP IDERMAL CYST Problem Pneumococcal pneumonia (200307444) PNEUMONIA OF BOTH UPPER LOBES DUE TO INFECTIOUS ORGANISM (J18.1) Inactive confirmed Comment:Left sided multifocal with slightly pleural effusion chest xray today return to clinic one week 15 minute visit, Problem Dermatitis (742434827) DERMATITIS, ECZEMATOID (L30.9) Inactive confirmed Comment:scrotu m pink, no scaling.,Descr iption:ECZEMA Problem Rash (511426911) RASH (R21) Inactive confirmed Comment:2 lesions on left lower extremity near ankle about 3 cm in diameter round scale at periphery almost looks lightly atrophied 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 will treat with lotrisone keep scheduled follow up with dermatology later this fall Hema Meza MD 06/12/2015, Problem Keratosis seborrheica (71715389) KERATOSIS SEBORRHEICA (L82.1) Inactive confirmed Comment:gurdeep,Suleiman escription:RAFAELA ORRHEIC KERATOSIS Problem Functional assessment (07706588) ENCOUNTER FOR RISK AND FUNCTIONAL ASSESSMENT OF PATIENT (Z13.9) Inactive confirmed Description: RI SK AND FUNCTIONAL ASSESSMENT Plan Of Treatment Pending Test Test Name Order Date DESTRUCTION PREMALIGNANT LESION: FIRST - 01/06/2021 DESTRUCTION PREMALIGNANT LESION: FIRST - 05/22/2021 DESTRUCTION PREMALIGNANT LESION: FIRST - 07/10/2021 DESTRUCTION PREMALIGNANT LESIONS, 2-14 L ESIONS - [id number] 07/10/2021 DESTRUCTION PREMALIGNANT LESIONS, 2-14 L ESIONS - [id number] 01/06/2021 Pathology Report 03/23/2022 Venipuncture[i] 11/28/2020 Venipuncture[i] 06/01/2021 Future Test Test Name Order Date VITAMIN B12 co 11/19/2021 CBC (Complete Blood Count) 05/22/2022 CMP (Comprehensive Metabolic Panel) 05/13 Hemoglobin A1C 05/22/2022 Lipid Profile 05/22/2022 PSA 05/22/2022 Insurance Providers Payer Name Payer Address Payer Phone Subscriber Number Group Number Insured Name Patient Relationship to Insured Coverage Start Date Coverage End Date [facility] MEDICARE PART B [address] [address] [place] [address] [id number] ANYIAH NADEGE Self - patient is the insured [facility] 2NDARY TO MEDICARE [address] [place] [address] [id number] TRISTEN DILLLEY Self - patient is the insured [facility] MEDICARE PART B [address] [address] [place] [address] [id number] TRISTEN DILLLEY Self - patient is the insured [facility] 2NDARY TO MEDICARE [address] [place] [address] [phone] [id number] NADEGE DILL Self - patient [...] IN S ITU OF SKIN OF RIGHT CONFUCIANIST REGION, ProblemStatus: Active, SWALLOWING PROBLEM, ProblemStatus: Activ e, TYPE II DIABETES MELLITUS, WELL CONTROLL ED, ProblemStatus: Active, Surgical History Surgery Date(Month/Year) Skin Cancer Removal, ProblemStatus: Acti ve, Hernia Repair, ProblemStatus: Active,
--- OUTSIDE RECORDS SUMMARY | 2025-07-19 08:42 | XMS_ITS | Clinical Summary ---
Author Organization [facility] Address [address] [place] [address] Phone Care Team Providers Care Solvent Process Extractor Operator Name Role Phone Diego Lam Primary Care [...] 2025 Insurance MEDICARE PART A AND B [employer] Advance Directives For more information, please contact: [phone] Documents on File Type Date Recorded Patient Manager Relationship Expl anation Advance Directive POA 12/03/2023 10:17 PM Advance Directive POA * Full Code (Latest Code Status on File) Date Activated Date Inactivated Comments 12/04/2023 8:05 AM 12/04/2023 5:09 PM Care Teams Solvent Process Extractor Operator Relationship Specialty Start Date End Date Diego Lam DO [address] [id number] PCP - General Family Practice 12/03/23
[2025-07-19] MEDS: magnesium citrate Btl 296 mL PO (09:10)
== END 2025-07-19 09:45 | disposition home or self-care (01) ==
PROVIDERS: Emergency Provider Student in an Organized Health Care Education/Training Program; PCP Family Medicine
DX: K59.00 Constipation, unspecified (principal); Z79.82 Long term (current) use of aspirin; E11.9 Type 2 diabetes mellitus without complications; I10 Essential (primary) hypertension
CPT/HCPCS: 99283; J9999

== ENCOUNTER 2025-08-03 09:46 | Outpatient (CLI) | payer MEDICARE, OTHER, SELFPAY ==
[2025-08-03 10:20] LABS: Estmated Average Glucose 140; Hemoglobin A1C 6.5 % (4.0-6.0)
== END 2025-08-03 09:47 | disposition home or self-care (01) ==
PROVIDERS: PCP Family Medicine; Visit Provider Family Medicine
DX: E11.9 Type 2 diabetes mellitus without complications (principal)
CPT/HCPCS: 83036